=== PATIENT | female | born 1950 | race Caucasian/White ===

== ENCOUNTER 2016-12-03 23:25 | Inpatient (IN) | payer MEDICAID ==
[~2016-12-03] VITALS: Ht 154.9 cm; Wt 89.8 kg
[~2016-12-03 23:25] MED LIST: AMLO-27 PO; ATOR10TA PO; BENA40TA PO; FLUO-387 PO; LABE300T19 PO; ONDA4TAB PO; SYN.075 PO; [UNRECOGNIZED DRUG - CODE] PO
[2016-12-03 23:37] VITALS: BP 141/76
[2016-12-04 00:18] LABS: BASOPHILS # (AUTO) 0.1 K/uL (0.00-0.22); BASOPHILS % (AUTO) 0.9 % (0.0-2.0); EOSINOPHILS # (AUTO) 0.3 K/uL (0-0.4); EOSINOPHILS % (AUTO) 2.4 % (0.0-4.0); HEMATOCRIT 37.7 % (36-48); HEMOGLOBIN 12.2 g/dL (12.0-16.0); LYMPHOCYTES # (AUTO) 0.9 K/uL (2.5-16.5); MEAN CORPUSCULAR HEMOGLOBIN 26 pg (27-31); MEAN CORPUSCULAR HGB CONC 32 g/dL (33-37); MEAN CORPUSCULAR VOLUME 81 fL (80-94); MONOCYTES # (AUTO) 0.4 K/uL (0.8-1.0); MONOCYTES % (AUTO) 3.6 % (1.7-9.3); NEUTROPHILS # (AUTO) 9.2 K/uL (1.8-7.7); NEUTROPHILS % (AUTO) 84.6 % (42.2-75.2); PLATELET COUNT (AUTO) 311 K/uL (140-450); RED BLOOD CELL COUNT(AUTO) 4.66 MIL/uL (4.20-5.40); RED CELL DISTRIBUTION WIDTH 14.5 % (11.6-13.7); WHITE BLOOD COUNT (AUTO) 10.9 K/uL (4.8-10.8)
--- NOTE | 2016-12-04 00:20 | NUR ---
PT RETURN FROM CT
[2016-12-04 00:23] LABS: APPEARANCE,URINE HAZY (CLEAR); BILIRUBIN,URINE 1+ (NEGATIVE); BLOOD, URINE NEGATIVE (NEGATIVE); COLOR,URINE YELLOW (YELLOW); LEUKOCYTE ESTERASE ,URINE NEGATIVE (NEGATIVE); NITRITE, URINE NEGATIVE (NEGATIVE); PH,URINE 5.5 (5.0-9.0); PROTEIN,URINE 1+ (NEGATIVE); UGLUCOSE NEGATIVE (NEGATIVE); UROBILINOGEN,URINE 0.2 EU/dL (0.2 - 1)
[2016-12-04 00:27] LABS: LYMPHOCYTES % (AUTO) 8.5 % (20.5-51.1)
[2016-12-04 00:31] LABS: ALBUMIN 3.7 g/dL (3.4-5.0); ANION GAP 17.1 (8-16); CALCIUM 9.2 mg/dL (8.5-10.1); CARBON DIOXIDE 27.7 mmol/L (21-32); CREATININE 1.8 mg/dL (0.6-1.3); POTASSIUM 3.8 mmol/L (3.5-5.1); TOTAL BILIRUBIN 0.4 mg/dL (0.0-1.0); TOTAL PROTEIN, SERUM 8.7 g/dL (6.4-8.2)
[2016-12-04 00:37] LABS: BACTERIA,URINE FEW /HPF (None Seen); ICTOTEST NEGATIVE (NEGATIVE); MUCUS,URINE 3+ /LPF (None Seen); RBC,URINE 0-5 (RARE) /HPF (0-5); URINE AMORPHOUS URATE 3+ /HPF (None Seen); WBC,URINE 0-5 (RARE) /HPF (0-5)
--- NOTE | 2016-12-04 01:37 | NUR ---
PT TAKEN TO BED 7
--- NOTE | 2016-12-04 01:38 | NUR ---
66 Y/O F W/C/O LOWER ABD/ LOWER BACK PAIN X 8 DAYS AGO. PT ALSO C/O N/V AND CHILLS ON AND OFF SINCE 8 DAYS AGO WELL. MISAEL ALEJO MADE AWARE.
--- NOTE | 2016-12-04 02:10 | NUR ---
Dr. Perales evaluating patient at bedside.
[2016-12-04] MEDS ORDERED: NACL 0.9% 1,000 ML IV ONE (02:20)
[2016-12-04] MEDS ORDERED: ONDANSETRON 4 MG/2 ML VIAL IVP ONE (02:20)
[2016-12-04] MEDS ORDERED: MORPHINE SULFATE 4 MG/ML SYR IVP ONE (02:20)
[2016-12-04] MEDS ORDERED: ONDANSETRON 4 MG/2 ML VIAL IVP PRN (02:40)
[2016-12-04] MEDS ORDERED: LORazepam 2 MG/ML VIAL IVP PRN (02:40)
[2016-12-04] MEDS ORDERED: ACETAMINOPHEN 325 MG TAB PO PRN (02:40)
--- NOTE | 2016-12-04 02:52 | NUR ---
Patient will be admitted to care of DR MART. Admited to MED SURG. Will go to room 120 B. Belongings list completed. Report to ОЛЬГА ESPARZA.
--- NOTE | 2016-12-04 03:02 | NUR ---
PT TRASFERRED TO MED SURG VIA WHEELCHAIR BY EMT. NO S/S OF DSITRESS NOTED UPON TRASFER.
[2016-12-04 03:20] VITALS: BP 148/71
--- NOTE | 2016-12-04 03:20 | NUR ---
ADMITTED THIS 66 YEAR OLD FEMALE FROM ER PER WHEELCHAIR WITH CC OF VOMITING AND ABDOMINAL PAIN, ASSESSMENT DONE, 09/21 PAIN AT THIS TIME, WILL MEDICATE PRN, NO N/V NOTED, INSTRUCTED NPO STATUS, VERBALIZED UNDERSTANDING, ORIENTED TO CALL LIGHT AND ROOM, SAFETY MEASURES IN PLACE, CALL LIGHT WITHIN REACH.
[2016-12-04] MEDS: DEXT 5% /NACL 0.9% 1,000 ML IV SCH ×3 (03:25→22:40)
[2016-12-04] MEDS ORDERED: ONDANSETRON 4 MG TAB PO SCH (04:00)
--- NOTE | 2016-12-04 05:10 | NUR ---
AMBULATED TO BR WITH STEADY GAIT, NO N/V AND PAIN AT THIS TIME, IVF INFUSING WELL, MONITORED CLOSELY.
[2016-12-04] MEDS: LEVOTHYROXINE 0.075 MG TAB PO SCH (05:44)
[2016-12-04] MEDS: MORPHINE SULFATE 4 MG/ML SYR IVP PRN (06:22)
--- NOTE | 2016-12-04 06:25 | NUR ---
PT AMBULATED TO BR AND VOIDED FREELY, SCD'S APPLIED, MEDICATED PRN FOR PAIN WITH MORPHINE IVP, IVF INFUSING WELL, MONITORED CLOSELY.
--- NOTE | 2016-12-04 07:20 | NUR ---
PT AWAKE, NO SIGNS OF DISTRESS, REPORT GIVEN TO ОЛЬГА GOULD FOR CONTINUITY OF CARE.
--- NOTE | 2016-12-04 07:30 | NUR ---
RECEIVED REPORT FROM ОЛЬГА ESPARZA. PT IS A/O X4. VERBALLY RESPONSIVE. BILATERAL PERRLA NOTED. NO C/O PAIN OR N/V. PT ON RA. SATURATING AT 98%. SKIN IS INTACT. PT IS AMBULATORY. LEFT AC 20 GAUGE IV NOTED. INTACT AND PATENT. SAFETY PRECAUTION MAINTAINED. BED AT LOWEST SETTING. CALL LIGHT WITHIN REACH. WILL CONTINUE TO MONITOR.
[2016-12-04 08:00] VITALS: BP 119/64
--- NOTE | 2016-12-04 08:08 | NUR ---
DR. DEVRIES PAGED REGARDING PATIENT. AWAITING CALL BACK.
--- NOTE | 2016-12-04 08:15 | NUR ---
RECEIVED CALL BACK FROM DR. DEVRIES. WILL FOLLOW NEW ORDERS.
[2016-12-04] MEDS: FLUoxetine 20 MG CAP PO SCH (08:54)
[2016-12-04] MEDS: ATORVASTATIN 20 MG TAB PO SCH (08:55)
[2016-12-04] MEDS: LABETALOL 100 MG TAB PO SCH (08:55)
[2016-12-04] MEDS: amLODIPine 5 MG TAB PO SCH (08:56)
[2016-12-04] MEDS: hydrALAZINE 25 MG TAB PO SCH (08:56)
--- NOTE | 2016-12-04 08:56 | NUR ---
PATIENT HAS BEEN SCREENED AND CATEGORIZED HIGH NUTRITION RISK. PATIENT WILL BE SEEN WITHIN 1-2 DAYS OF ADMISSION. 12/04/16-12/05/[address]
--- NOTE | 2016-12-04 08:56 | NUR ---
MEDICATION ADMINISTERED ORDERED. CHECKED BP. 119/64, P 68. TOLERATED WELL. WILL CONTINUE TO MONITOR.
[2016-12-04] MEDS ORDERED: BENAZEPRIL 20 MG TAB PO SCH (09:00)
--- NOTE | 2016-12-04 09:20 | NUR ---
DR. DEVRIES AT UNIT TO SEE PT. WILL F/U WITH NEW ORDERS.
--- NOTE | 2016-12-04 11:00 | NUR ---
DECKHAND FISHING VESSEL PRESENT AT BEDSIDE.
--- NOTE | 2016-12-04 11:56 | NUR ---
ADMISSION REVIEW DONE. PT INDEPENDENT IN ADLS PRIOR TO HOSPITALIZATION.
--- NOTE | 2016-12-04 12:15 | NUR ---
CHECKED ON PT. ALL NEEDS MET AT THIS TIME. CALL LIGHT WITHIN REACH.
--- NOTE | 2016-12-04 13:04 | NUR ---
12/04/16 RD INITIAL ASSESSMENT COMPLETED 1. INITIATE/TOLERATE PO DIET WITHIN 2-3 DAYS 2. MEET AT LEAST 50% ESTIMATED NUTRIENT NEEDS WITHIN 2-[address]
--- NOTE | 2016-12-04 13:42 | NUR ---
PT C/O 11/21 HEADACHE. MEDICATION GIVEN ORDERED.BP 107/97, P 88. WILL CONTINUE MONITORING
[2016-12-04] MEDS ORDERED: ONDANSETRON 4 MG TAB PO PRN (14:10)
[2016-12-04] MEDS: MORPHINE SULFATE 2 MG/ML SYR IVP PRN (14:33)
--- NOTE | 2016-12-04 14:57 | NUR ---
DR. MELENDEZ CONTACTED REGARDING SURGERY CONSULT. PER DR, HE IS NOT EMS DIRECTOR AND DR. COWAN IS EMS DIRECTOR INSTEAD. DR. COWAN CONTACTED. VOICE MAIL LEFT WITH CALL BACK NUMBER.
[2016-12-04 16:00] VITALS: BP 93/50
--- NOTE | 2016-12-04 16:45 | NUR ---
DR. ORTIZ AT BEDSIDE TO SEE PT. WILL F/U WITH NEW ORDERS. DR. Ming DEVRIES PAGED PER DR. ORTIZ'S INSTRUCTION. AWAITING CALL BACK.
--- NOTE | 2016-12-04 17:30 | NUR ---
URINE COLLECTED. SEND TO LAB.
--- NOTE | 2016-12-04 17:57 | NUR ---
CALL BACK RECEIVED FROM DR. HERNANDEZ. PER DR. HERNANDEZ, HE WILL BE CONSULT FOR PT.
--- NOTE | 2016-12-04 19:23 | NUR ---
REPORT GIVEN TO ОЛЬГА ESPARZA. PT IS STABLE.
--- NOTE | 2016-12-04 19:30 | NUR ---
RECEIVED PT AWAKE TALKING TO FAMILY MEMBERS AT BEDSIDE, DENIES ANY PAIN, MAINTAINED ON NPO EXCEPT MEDS, ICE CHIPS PROVIDED, PLAN OF CARE DISCUSSED WITH PT AND SISTER, SAFETY MEASURES IN PLACE, CALL LIGHT WITHIN REACH.
--- NOTE | 2016-12-04 20:50 | NUR ---
PT AMBULATED TO BR WITH STEADY GAIT AND VOIDED FREELY, ALL NEEDS ATTENDED.
--- NOTE | 2016-12-04 22:35 | NUR ---
PT TRANSFERRED TO ROOM 111A, DENIES PAIN AT THIS TIME, ICE CHIPS PROVIDED, IVF INFUSING WELL, MONITORED CLOSELY.
[2016-12-05] VITALS: BP 119/61
--- NOTE | 2016-12-05 | NUR ---
PT SLEEPING, EASILY AROUSABLE, VITAL SIGNS STABLE, DENIES ANY PAIN OR NAUSEA, IVF INFUSING WELL, CONTINUE TO MONITOR CLOSELY.
[2016-12-05] MEDS: DEXT 5% /NACL 0.9% 1,000 ML IV SCH (02:11)
--- NOTE | 2016-12-05 04:00 | NUR ---
ROUNDED ON PT, SLEEPING NO SIGNS OF PAIN, IVF INFUSING WELL, MONITORED CLOSELY.
[2016-12-05] MEDS: LEVOTHYROXINE 0.075 MG TAB PO SCH (05:55)
[2016-12-05] MEDS: MORPHINE SULFATE 2 MG/ML SYR IVP PRN ×2 (05:58→21:18)
--- NOTE | 2016-12-05 06:00 | NUR ---
DUE PO MEDICATION GIVEN WITH SIP OF JUICE, NO NAUSEA NOTED, MEDICATED PRN FOR ABDOMINAL PAIN WITH MORPHINE IVP, MONITORED CLOSELY.
[2016-12-05 06:50] LABS: BASOPHILS # (AUTO) 0.1 K/uL (0.00-0.22); BASOPHILS % (AUTO) 1.5 % (0.0-2.0); EOSINOPHILS # (AUTO) 0.1 K/uL (0-0.4); EOSINOPHILS % (AUTO) 1.7 % (0.0-4.0); HEMATOCRIT 30.6 % (36-48); HEMOGLOBIN 9.7 g/dL (12.0-16.0); LYMPHOCYTES # (AUTO) 2.3 K/uL (2.5-16.5); LYMPHOCYTES % (AUTO) 35.2 % (20.5-51.1); MEAN CORPUSCULAR HEMOGLOBIN 26 pg (27-31); MEAN CORPUSCULAR HGB CONC 32 g/dL (33-37); MEAN CORPUSCULAR VOLUME 81 fL (80-94); MONOCYTES # (AUTO) 0.5 K/uL (0.8-1.0); MONOCYTES % (AUTO) 7.3 % (1.7-9.3); NEUTROPHILS # (AUTO) 3.7 K/uL (1.8-7.7); NEUTROPHILS % (AUTO) 54.3 % (42.2-75.2); PLATELET COUNT (AUTO) 225 K/uL (140-450); RED BLOOD CELL COUNT(AUTO) 3.78 MIL/uL (4.20-5.40); RED CELL DISTRIBUTION WIDTH 14.5 % (11.6-13.7); WHITE BLOOD COUNT (AUTO) 6.7 K/uL (4.8-10.8)
[2016-12-05 06:54] LABS: ANION GAP 12.9 (8-16); CALCIUM 7.8 mg/dL (8.5-10.1); CARBON DIOXIDE 27.2 mmol/L (21-32); CREATININE 1.1 mg/dL (0.6-1.3); POTASSIUM 3.1 mmol/L (3.5-5.1)
[2016-12-05 07:07] LABS: MAGNESIUM 1.8 mg/dL (1.8-2.4); PHOSPHORUS 3.9 mg/dL (2.5-4.9)
[2016-12-05] MEDS: DEXT 5% / NACL 0.45% 1,000 ML IV SCH ×2 (07:15→16:07)
--- NOTE | 2016-12-05 07:15 | NUR ---
SPOKE WITH DR Anup DEVRIES REGARDING POTASSIUM OF 3.1. MD IS AWARE AND SAID HE WILL COME IN TO PLACE ORDERS.
--- NOTE | 2016-12-05 07:20 | NUR ---
PT AWAKE, NO SIGNS OF DISTRESS, REPORT GIVEN TO ОЛЬГА RIVERA FOR CONTINUITY OF CARE.
--- NOTE | 2016-12-05 07:20 | NUR ---
RECEIVED PT REPORT AT BEDSIDE FROM NIGHT NURSE. PT IS AAOX4 AND SHOWS NO S/S OF DISTRESS ON ROOM AIR. PT HAS A NOTED PATENT IV ON THE R AC WITH IVF'S INFUSING WELL. PT SKIN IS INTACT AND ABD IS SOFT AND TENDER AT THE UMBILICAL AREA AND RLQ. PT STATES PAIN OF 8/10 IN THE LOWER ABD. PT WAS EDUCATED ON HER POC FOR TODAY. PT VERBALIZED UNDERSTANDING. THE BED IS LOWERED WITH THE CALL LIGHT WITHIN REACH. WILL CONTINUE TO MONITOR.
[2016-12-05] MEDS ORDERED: POTASSIUM CHLORIDE 10 MEQ TABER PO SCH (08:22)
[2016-12-05 08:33] VITALS: BP 130/59
[2016-12-05] MEDS: amLODIPine 5 MG TAB PO SCH (08:35)
[2016-12-05] MEDS: FLUoxetine 20 MG CAP PO SCH (08:35)
[2016-12-05] MEDS: ATORVASTATIN 20 MG TAB PO SCH (08:35)
[2016-12-05] MEDS: hydrALAZINE 25 MG TAB PO SCH (08:36)
--- NOTE | 2016-12-05 08:36 | NUR ---
ADMINISTERED SCHEDULED MEDICATIONS. PT TOLERATED ACTIVITY WELL. PT STATED ABD PAIN OF 8/10. PT WAS GIVEN MORPHINE 4 MG IVP. PT THEN AMB TO THE RESTROOM WITH A STEADY GAIT.
[2016-12-05] MEDS: MORPHINE SULFATE 4 MG/ML SYR IVP PRN (08:37)
--- NOTE | 2016-12-05 08:45 | NUR ---
PT IS BEING SEEN BY DR COWAN. STATED WILL PLACE ORDERS FOR ABD BINDER AND CLEAR LIQUIDS.
--- NOTE | 2016-12-05 08:50 | NUR ---
PLACE AN ABD BINDER ONTO PT.
[2016-12-05 09:44] LABS: INR 1.1 (0.8-1.2); PROTHROMBIN TIME 10.7 secs (10.8-13.4)
--- NOTE | 2016-12-05 10:30 | NUR ---
PT WAS GIVEN GELATIN AND JUICE. PT AWARE SHE IS ON A CLEAR LIQUID DIET.
--- NOTE | 2016-12-05 11:46 | NUR ---
PT IS UP OOB AND AMB TO RESTROOM WITH A STEADY GAIT. PT STATED SHE WOULD LIKE TO TAKE A SHOWER. PT SHOWS NO S/S OF DISTRESS AT THIS TIME.
[2016-12-05] MEDS: LABETALOL 100 MG TAB PO SCH (11:48)
--- NOTE | 2016-12-05 12:40 | NUR ---
PT IN BED AND ATE ALL OF LUNCH. PT TOLERATED CLEAR LIQUID DIET WELL. PT DENIES PAIN AT THIS TIME WILL CONTINUE TO MONITOR.
--- NOTE | 2016-12-05 15:25 | NUR ---
PT IS AAOX4 AND DENIES PAIN. PT SHOWS NO S/S OF DISTRESS ON ROOM AIR. PT LEFT UNIT IN STABLE CONDITION FOR XR.
--- NOTE | 2016-12-05 15:34 | NUR ---
PT IS BACK ON UNIT.
[2016-12-05 16:00] VITALS: BP 115/51
--- NOTE | 2016-12-05 17:21 | NUR ---
PT IS RESTING IN BED AND SHOWS NO S/S OF DISTRESS ON ROOM AIR. PT HAS VISITOR AT BEDSIDE. PT DENIES PAIN.
--- NOTE | 2016-12-05 18:18 | NUR ---
PT IS AAOX4 AND SHOWS NO S/S OF DISTRESS ON ROOM AIR. PT DENIES PAIN AND SOB. PT HAS IVF'S INFUSING WELL ON THE R H. PT HAS VISITOR AT BEDSIDE. THE BED IS LOWERED WITH CALL LIGHT WITHIN REACH. WILL ENDORSED TO THE AUTHOR NURSE.
--- NOTE | 2016-12-05 19:05 | NUR ---
GAVE PT REPORT TO NIGHT NURSE AT BEDSIDE. PT ENDORSED IN STABLE CONDITION.
--- NOTE | 2016-12-05 19:30 | NUR ---
RECEIVED REPORT FROM AM NURSE. FAMILY AT BEDSIDE. PT RESTING IN BED, AOX4, ABLE TO VERBALIZE NEEDS. PT DENIES CHEST PAIN, SOB OR S/S OF ACUTE DISTRESS. ABD LARGE AND ROUND, DENIES PAIN AT THIS TIME. ABD BINDER IN PLACE. IV ACCESS ASYMPTOMATIC PATENT AND INTACT. IVF INFUSING WELL. DISCUSSED AND REVIEWED PLAN OF CARE WITH PT. PT VERBALIZED UNDERSTANDING. SAFETY MEASURES ENSURED. CALL LIGHT WITHIN REACH. WILL CONTINUE TO MONITOR.
[2016-12-05 20:00] VITALS: BP 137/62
--- NOTE | 2016-12-05 21:22 | NUR ---
PT C/O PAIN. SEE PAIN ASSESSMENT. ADMINISTERED PAIN MEDICATION ORDERED. PT TOLERATED WELL. SAFETY MEASURES ENSURED. CALL LIGHT WITHIN REACH. WILL CONTINUE TO MONITOR.
[2016-12-06] VITALS: BP 125/64
--- NOTE | 2016-12-06 | NUR ---
PT SLEEPING. CONDITION STABLE. SAFETY MEASURES ENSURED. CALL LIGHT WITHIN REACH. WILL CONTINUE TO MONITOR.
[2016-12-06] MEDS: DEXT 5% / NACL 0.45% 1,000 ML IV SCH ×2 (03:15→15:09)
--- NOTE | 2016-12-06 04:34 | NUR ---
PT SLEEPING. ALL NEEDS MET. CONDITION STABLE. SAFETY MEASURES ENSURED. CALL LIGHT WITHIN REACH. WILL CONTINUE TO MONITOR.
[2016-12-06] MEDS: LEVOTHYROXINE 0.075 MG TAB PO SCH (05:32)
[2016-12-06] MEDS: MORPHINE SULFATE 2 MG/ML SYR IVP PRN (05:38)
[2016-12-06 07:20] LABS: BASOPHILS # (AUTO) 0.2 K/uL (0.00-0.22); BASOPHILS % (AUTO) 3.8 % (0.0-2.0); EOSINOPHILS # (AUTO) 0.2 K/uL (0-0.4); EOSINOPHILS % (AUTO) 3.2 % (0.0-4.0); HEMATOCRIT 33.4 % (36-48); HEMOGLOBIN 10.8 g/dL (12.0-16.0); LYMPHOCYTES # (AUTO) 2.1 K/uL (2.5-16.5); LYMPHOCYTES % (AUTO) 35.4 % (20.5-51.1); MEAN CORPUSCULAR HEMOGLOBIN 26 pg (27-31); MEAN CORPUSCULAR HGB CONC 32 g/dL (33-37); MEAN CORPUSCULAR VOLUME 81 fL (80-94); MONOCYTES # (AUTO) 0.3 K/uL (0.8-1.0); MONOCYTES % (AUTO) 4.4 % (1.7-9.3); NEUTROPHILS # (AUTO) 3.2 K/uL (1.8-7.7); NEUTROPHILS % (AUTO) 53.2 % (42.2-75.2); PLATELET COUNT (AUTO) 238 K/uL (140-450); RED CELL DISTRIBUTION WIDTH 14.4 % (11.6-13.7)
--- NOTE | 2016-12-06 07:26 | NUR ---
ENDORSED PLAN OF CARE TO AM NURSE. CONDITION STABLE.
--- NOTE | 2016-12-06 07:26 | NUR ---
RECEIVED PT REPORT AT BEDSIDE FROM NIGHT NURSE. PT IS AAOX4 AND SHOWS NO S/S OF DISTRESS ON ROOM AIR. PT DENIES ABD PAIN. IV NOTED ON THE R H WITH IVF'S INFUSING WELL. PT IS ON MS. PT HAS NOTED ABD BINDER. PT WAS EDUCATED ON THE POC FOR TODAY. PT VERBALIZED UNDERSTANDING. THE BED IS LOWERED WITH CALL LIGHT WITHIN REACH.
[2016-12-06 07:55] LABS: ANION GAP 11.5 (8-16); CALCIUM 8.3 mg/dL (8.5-10.1); CARBON DIOXIDE 29.1 mmol/L (21-32); CREATININE 0.9 mg/dL (0.6-1.3); POTASSIUM 3.6 mmol/L (3.5-5.1)
[2016-12-06 08:00] VITALS: BP 138/79
[2016-12-06] MEDS: ATORVASTATIN 20 MG TAB PO SCH (08:35)
[2016-12-06] MEDS: hydrALAZINE 25 MG TAB PO SCH (08:35)
[2016-12-06] MEDS: amLODIPine 5 MG TAB PO SCH (08:36)
[2016-12-06] MEDS: FLUoxetine 20 MG CAP PO SCH (08:36)
--- NOTE | 2016-12-06 08:40 | NUR ---
ADMINISTERED SCHEDULED MEDICATIONS. PT TOLERATED ACTIVITY WELL. PT NOT GIVEN LABETALOL 100MG. WILL REASSESS BP.
[2016-12-06] MEDS: LABETALOL 100 MG TAB PO SCH (09:00)
--- NOTE | 2016-12-06 11:15 | NUR ---
PT IS IN BED AND SHOWS NO S/S OF DISTRESS AT THIS TIME. PT DENIES ABD PAIN AND SOB. WILL CONTINUE TO MONITOR.
--- NOTE | 2016-12-06 12:00 | NUR ---
DID NOT GIVE PT LABETALOL. PT BP IS STABLE. WILL CONTINUE TO MONITOR.
--- NOTE | 2016-12-06 13:15 | NUR ---
PT HAS VISITORS AT BEDSIDE. PT SHOWS NO S/S OF DISTRESS ON ROOM AIR. PT IS COMFORTABLY IN BED AND TALKING CLEARLY. PT DENIES ABD PAIN. WILL CONTINUE TO MONITOR.
--- NOTE | 2016-12-06 15:41 | NUR ---
PT IS IN BED AND SHOWS NO S/S OF DISTRESS ON ROOM AIR. PT HAS VISITORS AT BEDSIDE. WILL CONTINUE TO MONITOR.
[2016-12-06 16:00] VITALS: BP 112/63
--- NOTE | 2016-12-06 17:10 | NUR ---
PT C/O ABD PAIN 12/21 WILL ADMINISTER PRN PAIN MEDICATION.
[2016-12-06] MEDS: MORPHINE SULFATE 4 MG/ML SYR IVP PRN (17:12)
--- NOTE | 2016-12-06 18:11 | NUR ---
PT IS AAOX4 AND SHOWS NO S/S OF DISTRESS ON ROOM AIR. PT DENIES PAIN AT THIS TIME. PT AMB TO RESTROOM WITH STABLE GAIT. PT IS NOW SITTING IN BED AND IN STABLE CONDITION. PT HAS IV ON THE R H WITH IVF'S INFUSING WELL. PT HAS ABD BINDER ON. PT IS AWARE OF POC FOR TOMORROW. PT WILL BE NPO AT MIDNIGHT. WILL ENDORSED TO THE NIGHT NURSE.
--- NOTE | 2016-12-06 19:26 | NUR ---
GAVE REPORT TO NIGHT NURSE AT BEDSIDE. PT ENDORSED IN STABLE CONDITION.
--- NOTE | 2016-12-06 19:30 | NUR ---
RECEIVED REPORT FROM AM NURSE. FAMILY AT BEDSIDE. PT RESTING IN BED, AOX4, ABLE TO VERBALIZE NEEDS. PT DENIES CHEST PAIN, SOB OR S/S OF ACUTE DISTRESS. ABD LARGE AND ROUND, DENIES PAIN AT THIS TIME. ABD BINDER IN PLACE. IV ACCESS ASYMPTOMATIC PATENT AND INTACT. PT REQUESTED TO HAVE IVF SALINE LOCKED AT THIS TIME. DISCUSSED AND REVIEWED PLAN OF CARE WITH PT. PT VERBALIZED UNDERSTANDING. PT INSTRUCTED TO BE NPO AFTER MIDNIGHT, PT VERBALIZED UNDERSTANDING. SAFETY MEASURES ENSURED. CALL LIGHT WITHIN REACH. WILL CONTINUE TO MONITOR.
[2016-12-06 20:00] VITALS: BP 135/77
--- NOTE | 2016-12-06 21:31 | NUR ---
PT RESTING COMFORTABLY IN BED. ALL NEEDS MET. CONDITION STABLE. SAFETY MEASURES ENSURED. CALL LIGHT WITHIN REACH. WILL CONTINUE TO MONITOR.
--- NOTE | 2016-12-06 23:48 | NUR ---
PT MOVED TO ROOM 105A WITH BED AND BELONGINGS. ALL NEEDS MET. CONDITION STABLE. IVF INFUSING WELL. SAFETY MEASURES ENSURED. CALL LIGHT WITHIN REACH. WILL CONTINUE TO MONITOR.
[2016-12-07] VITALS: BP 113/55
--- NOTE | 2016-12-07 | NUR ---
INSTRUCTED PT TO REMAIN NPO. PT VERBALIZED UNDERSTANDING.
--- NOTE | 2016-12-07 03:13 | NUR ---
PT SLEEPING. ALL NEEDS MET. CONDITION STABLE. SAFETY MEASURES ENSURED. CALL LIGHT WITHIN REACH. WILL CONTINUE TO MONITOR.
[2016-12-07] MEDS: LEVOTHYROXINE 0.075 MG TAB PO SCH (05:55)
[2016-12-07 06:24] LABS: BASOPHILS # (AUTO) 0.1 K/uL (0.00-0.22); BASOPHILS % (AUTO) 1.6 % (0.0-2.0); EOSINOPHILS # (AUTO) 0.1 K/uL (0-0.4); EOSINOPHILS % (AUTO) 2.4 % (0.0-4.0); HEMATOCRIT 31.4 % (36-48); HEMOGLOBIN 10.1 g/dL (12.0-16.0); LYMPHOCYTES # (AUTO) 1.9 K/uL (2.5-16.5); LYMPHOCYTES % (AUTO) 35.4 % (20.5-51.1); MEAN CORPUSCULAR HEMOGLOBIN 26 pg (27-31); MEAN CORPUSCULAR HGB CONC 32 g/dL (33-37); MEAN CORPUSCULAR VOLUME 81 fL (80-94); MONOCYTES # (AUTO) 0.4 K/uL (0.8-1.0); MONOCYTES % (AUTO) 7.4 % (1.7-9.3); NEUTROPHILS # (AUTO) 2.8 K/uL (1.8-7.7); NEUTROPHILS % (AUTO) 53.2 % (42.2-75.2); PLATELET COUNT (AUTO) 236 K/uL (140-450); RED CELL DISTRIBUTION WIDTH 14.1 % (11.6-13.7); WHITE BLOOD COUNT (AUTO) 5.3 K/uL (4.8-10.8)
[2016-12-07 06:34] LABS: ANION GAP 7.2 (8-16); CARBON DIOXIDE 32.2 mmol/L (21-32); CREATININE 0.8 mg/dL (0.6-1.3); POTASSIUM 3.4 mmol/L (3.5-5.1)
[2016-12-07 07:03] LABS: MAGNESIUM 1.4 mg/dL (1.8-2.4); PHOSPHORUS 3.4 mg/dL (2.5-4.9)
--- NOTE | 2016-12-07 07:18 | NUR ---
CONDITION STABLE. ENDORSED PLAN OF CARE TO AM NURSE.
--- NOTE | 2016-12-07 07:19 | NUR ---
RECEIVED REPORT OF PT FROM E TAILER NURSE AT BEDSIDE. INTRODUCED MYSELF AND UPDATED THE BOARD. PT IS A&OX4. PT HAS IV ON R HAND 22 G RUNNING D51/2NS@ 60ML/HR. PT HAS NO COMPLAINTS AT THIS TIME. PT HAS BEEN KEPT NPO AFTER MIDNIGHT FOR POSS HERNIA REPAIR. PT VERBALIZED UNDERSTANDING OF PLAN, WILL UPDATE PT. CALL LIGHT WITHIN REACH. WILL CONTINUE TO MONITOR.
[2016-12-07] MEDS: DEXT 5% / NACL 0.45% 1,000 ML IV SCH (07:49)
[2016-12-07 08:00] VITALS: BP 147/70
[2016-12-07] MEDS ORDERED: POTASSIUM CHLORIDE 10 MEQ TABER PO SCH (09:30)
--- NOTE | 2016-12-07 09:30 | NUR ---
PT TOOK A SHOWER. TOLERATED WELL. CALL LIGHT WITHIN REACH. WILL CONTINUE TO MONITOR.
[2016-12-07] MEDS: ATORVASTATIN 20 MG TAB PO SCH (09:49)
[2016-12-07] MEDS: LABETALOL 100 MG TAB PO SCH (09:49)
[2016-12-07] MEDS: FLUoxetine 20 MG CAP PO SCH (09:49)
[2016-12-07] MEDS: amLODIPine 5 MG TAB PO SCH (09:50)
[2016-12-07] MEDS ORDERED: MAG SULF 2000 MG/WATER PREMIX 50 ML IV SCH (10:00)
--- NOTE | 2016-12-07 11:00 | NUR ---
PT IS RESTING COMFORTABLY IN BED. CALL LIGHT WITHIN REACH. WILL CONTINUE TO MONITOR.
--- NOTE | 2016-12-07 11:28 | NUR ---
12/07/16 RD FOLLOW-UP ASSESSMENT COMPLETED PLEASE REFER TO NUTRITION ASSESSMENT UNDER CARE ACTIVITY FOR ESTIMATED NUTRITIONAL NEEDS. 1. WHEN MEDICALLY FEASIBLE, RESUME PO DIET - TO START ON CLEAR LIQUID DIET AND ADVANCE TOLERATED TO LOW FAT DIET 2. RD TO FOLLOW-UP 2-3 DAYS; HIGH RISK VADIM MERCADO, RADHA
--- NOTE | 2016-12-07 13:05 | NUR ---
PT REQUESTED PAIN MED. ADMINISTERED AND TOLERATED WELL. CALL LIGHT WITHIN REACH. WILL CONTINUE TO MONITOR.
--- NOTE | 2016-12-07 14:50 | NUR ---
PT IS RESTING IN BED. NO DISTRESS NOTED. CALL LIGHT WITHIN REACH. WILL CONTINUE TO MONITOR.
[2016-12-07 16:00] VITALS: BP 121/60
--- NOTE | 2016-12-07 16:00 | NUR ---
DR. COWAN ORDERED FULL LIQUID DIET. STATED HE WILL CALL BACK TO RESCHEDULE SURGERY TIME.
--- NOTE | 2016-12-07 18:40 | NUR ---
PT TOOK WALK IN HALLWAY. TOLERATED WELL. WILL CONTINUE TO MONITOR.
--- NOTE | 2016-12-07 19:25 | NUR ---
ENDORSED CARE OF PT TO DRIVING INSTRUCTOR NURSE AT BEDSIDE. PT IN STABLE CONDITION.
--- NOTE | 2016-12-07 19:30 | NUR ---
RECEIVED REPORT FROM AM NURSE. PT RESTING IN BED, AOX4, ABLE TO VERBALIZE NEEDS. PT DENIES CHEST PAIN, SOB OR S/S OF ACUTE DISTRESS. ABD LARGE AND ROUND, DENIES PAIN AT THIS TIME. IV ACCESS ASYMPTOMATIC PATENT AND INTACT. IVF INFUSING WELL. DISCUSSED AND REVIEWED PLAN OF CARE WITH PT. PT VERBALIZED UNDERSTANDING. SAFETY MEASURES ENSURED. CALL LIGHT WITHIN REACH. WILL CONTINUE TO MONITOR.
[2016-12-07 20:00] VITALS: BP 106/48
[2016-12-08] VITALS: BP_SYST 106; BP_SYST 126; BP_DIAS 48; BP_DIAS 49
--- NOTE | 2016-12-08 | NUR ---
PT INSTRUCTED TO NOT EAT OR DRINK FOR POSSIBLE SURGERY TOMORROW. PT VERBALIZED UNDERSTANDING. VS NOTED. PT RESTING COMFORTABLY, DENIES PAIN AT THIS TIME. SAFETY MEASURES ENSURED. CALL LIGHT WITHIN REACH. WILL CONTINUE TO MONITOR.
--- NOTE | 2016-12-08 03:12 | NUR ---
PT SLEEPING. CONDITION STABLE. ALL NEEDS MET. IVF INFUSING WELL. SAFETY MEASURES ENSURED. CALL LIGHT WITHIN REACH. WILL CONTINUE TO MONITOR.
[2016-12-08] MEDS: DEXT 5% / NACL 0.45% 1,000 ML IV SCH (03:31)
[2016-12-08] MEDS: LEVOTHYROXINE 0.075 MG TAB PO SCH (05:31)
[2016-12-08 05:57] LABS: BASOPHILS # (AUTO) 0.1 K/uL (0.00-0.22); BASOPHILS % (AUTO) 1.9 % (0.0-2.0); EOSINOPHILS # (AUTO) 0.2 K/uL (0-0.4); EOSINOPHILS % (AUTO) 3.9 % (0.0-4.0); HEMATOCRIT 32.3 % (36-48); HEMOGLOBIN 10.4 g/dL (12.0-16.0); LYMPHOCYTES # (AUTO) 1.6 K/uL (2.5-16.5); LYMPHOCYTES % (AUTO) 29.4 % (20.5-51.1); MEAN CORPUSCULAR HEMOGLOBIN 26 pg (27-31); MEAN CORPUSCULAR HGB CONC 32 g/dL (33-37); MEAN CORPUSCULAR VOLUME 81 fL (80-94); MONOCYTES # (AUTO) 0.4 K/uL (0.8-1.0); MONOCYTES % (AUTO) 6.6 % (1.7-9.3); NEUTROPHILS # (AUTO) 3.3 K/uL (1.8-7.7); NEUTROPHILS % (AUTO) 58.2 % (42.2-75.2); PLATELET COUNT (AUTO) 226 K/uL (140-450); RED BLOOD CELL COUNT(AUTO) 3.98 MIL/uL (4.20-5.40); RED CELL DISTRIBUTION WIDTH 14.2 % (11.6-13.7); WHITE BLOOD COUNT (AUTO) 5.6 K/uL (4.8-10.8)
[2016-12-08 06:16] LABS: ANION GAP 9.7 (8-16); CARBON DIOXIDE 29.8 mmol/L (21-32); CREATININE 0.8 mg/dL (0.6-1.3); POTASSIUM 3.5 mmol/L (3.5-5.1)
--- NOTE | 2016-12-08 06:39 | NUR ---
CALLED DR COWAN. ASKED IF HE IS PLANNING TO DO THE POSSIBLE HERNIA REPAIR SURGERY TODAY. MADE MD AWARE THAT PT WAS VERBALLY INSTRUCTED TO REMAIN NPO SINCE MIDNIGHT FOR POSSIBLE SURGERY. MD STATED "PROBABLY NOT TODAY, BECAUSE IT IS A COMPLEX SURGERY. SHE CAN EAT TODAY." MADE MD AWARE THAT PT WAS EXPRESSING CONCERNS TO BE DISCHARGED IF SHE DID NOT HAVE SURGERY TODAY. MD STATED THAT HE WILL BE IN TODAY AROUND NOON. WILL UPDATE PT AND DISCUSS THAT DR COWAN WILL BE IN TODAY AROUND NOON.
--- NOTE | 2016-12-08 07:15 | NUR ---
Patient's Plan of Care was discussed and reviewed with LATENT PRINT EXAMINER: SHANON MEDINA PT ON STABLE CONDITION. PT AWAKE. ALERT ORIENTED X4. NO SOB NOTED. PT AMBULATORY. POSITIVE BOWEL SOUNDS NOTED ON FOUR QUADRANTS. DENIES ANY PAIN OR DISCOMFORT AT THIS TIME. SAFETY PRECAUTION IN PLACE CALL LIGHT WITHIN REACH.
--- NOTE | 2016-12-08 07:21 | NUR ---
ASSUMED CONTINUITY OF CARE. NO SIGNS AND SYMPTOMS OF ACUTE DISTRESS NOTED. INITIAL ASSESSMENT DONE. KEEP COMFORTABLE ON BED. EXPLAINED DIAGNOSIS, PLAN OF CARE, PAIN MANAGEMENT TEACHING, USE OF CALL LIGHT/BED/TV/BATHROOM. VERBALIZED UNDERSTANDING. CALL LIGHT WITHIN REACH.
--- NOTE | 2016-12-08 07:21 | NUR ---
CONDITION STABLE. ENDORSED PLAN OF CARE TO AM NURSE.
[2016-12-08 08:00] VITALS: BP 131/69
[2016-12-08 09:00] VITALS: BP 128/63
[2016-12-08] MEDS: LABETALOL 100 MG TAB PO SCH (09:00)
[2016-12-08] MEDS: amLODIPine 5 MG TAB PO SCH (09:00)
[2016-12-08] MEDS: ATORVASTATIN 20 MG TAB PO SCH (09:01)
[2016-12-08] MEDS: FLUoxetine 20 MG CAP PO SCH (09:01)
--- NOTE | 2016-12-08 11:45 | NUR ---
DR. COWAN CAME AND SPOKE TO PT..
[2016-12-08 12:00] VITALS: BP 107/50
[2016-12-08 16:00] VITALS: BP 120/55
--- NOTE | 2016-12-08 17:43 | NUR ---
PAGED JESSICA COOPER REGARDING DR. COWAN SURGERY PLAN FOR Wednesday12/10/16 LAPAROSCOPIC POSSIBLE OPEN VENTRAL HERNIA REPAIR WITH MESH. LEFT CALL BACK NUMBER. INFORMED CHARGE NURSE.
--- NOTE | 2016-12-08 19:18 | NUR ---
JESSICA COOPER CAME, CHARGE NURSE LELIA GARCIA -ОЛЬГА INFORMED JESSICA COOPER OF DR. COWAN SURGERY PLAN OF LAPAROSCOPIC POSSIBLE OPEN VENTRAL HERNIA REPAIR WITH MESH ON 12/10/16.
--- NOTE | 2016-12-08 19:27 | NUR ---
BEDSIDE REPORT GIVEN TO CARMEN WILSON. NO ACUTE DISTRESS NOTED. ALSO ENDORSED ABOUT DR. COWAN SURGERY PLAN.
--- NOTE | 2016-12-08 19:28 | NUR ---
RECD. RESTING IN BED, AWAKE, A/OX4. RESPIRATION EVEN AND UNLABORED. IV SALINE LOCK AT THE RIGHT AC G22. PATENT BUT PATIENT IS COMPLAINING OF PAIN IN THE SITE, WILL CHANGE IV SITE LATER PER PATIENT REQUEST. AWARE OF SURGEON PLAN FOR HER. PLAN OF CARE FOR THE SHIFT DISCUSSED. VERBALIZED UNDERSTANDING. CONVERSING WITH VISITORS AT THE BEDSIDE. DENIES PAIN 0/10.
--- NOTE | 2016-12-08 21:30 | NUR ---
Patient's Plan of Care was discussed and reviewed with PEBBLE MILL OPERATOR: CARMEN JOHANSEN
--- NOTE | 2016-12-08 21:30 | NUR ---
GIVEN JUICES AND GELATIN REQUESTED.
[2016-12-09] VITALS: BP 121/74
--- NOTE | 2016-12-09 | NUR ---
STILL AWAKE, READING A BOOK. ENCOURAGED TO GO TO SLEEP.
--- NOTE | 2016-12-09 01:30 | NUR ---
SLEEPING COMFORTABLY IN BED.
--- NOTE | 2016-12-09 05:35 | NUR ---
IV INFILTRATED, NEW IV LINE INSERTED AT THE RIGHT WRIST G 22 BY ОЛЬГА ESPARZA.
[2016-12-09 06:47] LABS: ANION GAP 11.9 (8-16); CARBON DIOXIDE 28.6 mmol/L (21-32); CREATININE 0.9 mg/dL (0.6-1.3); POTASSIUM 3.5 mmol/L (3.5-5.1)
[2016-12-09] MEDS: LEVOTHYROXINE 0.075 MG TAB PO SCH (06:51)
--- NOTE | 2016-12-09 07:00 | NUR ---
NO COMPLAINT OF ABDOMINAL PAIN DURING SHIFT, WILL ENDORSE TO AM NURSE FOR CONTINUITY OF CARE.
--- NOTE | 2016-12-09 07:05 | NUR ---
RECEIVED REPORT FROM PAXTON MORALES. PT IS RESTING IN BED, A/OX4, AMBULATORY, SKIN IS INTACT, IV ON THE RT WRIST, PATENT, INTACT, SL, NO S/S OF RESPIRATORY DISTRESS OR DISCOMFORT NOTED, DISCUSSED PLAN OF CARE WITH PT, PT VERBALIZED UNDERSTANDING, SAFETY/FALL PRECAUTIONS ARE IN PLACE, CALL LIGHT IS WITHIN REACH, WILL CONTINUE TO MONITOR.
[2016-12-09 08:00] VITALS: BP 123/64
[2016-12-09] MEDS: amLODIPine 5 MG TAB PO SCH (09:03)
[2016-12-09] MEDS: FLUoxetine 20 MG CAP PO SCH (09:03)
[2016-12-09] MEDS: ATORVASTATIN 20 MG TAB PO SCH (09:03)
[2016-12-09] MEDS: LABETALOL 100 MG TAB PO SCH (09:03)
--- NOTE | 2016-12-09 09:15 | NUR ---
PT RESTING IN BED WATCHING TV, CALL LIGHT WITHIN REACH.
--- NOTE | 2016-12-09 10:00 | NUR ---
RECEIVED PHONE CALL, PER DR. COWAN OBTAIN CONSENT FOR PROCEDURE SCHEDULED TOMORROW 12/10/16 AT 1230, ORDER EKG, PT, INR AND CHEST XRAY.
--- NOTE | 2016-12-09 11:30 | NUR ---
PT AMBULATING DOWN THE WHITT AT THIS TIME.
--- NOTE | 2016-12-09 12:33 | NUR ---
12/09/16 RD FOLLOW-UP ASSESSMENT COMPLETED PLEASE REFER TO NUTRITION ASSESSMENT UNDER CARE ACTIVITY FOR ESTIMATED NUTRITIONAL NEEDS. 1. CONTINUE FULL LIQUID DIET, WHEN MEDICALLY FEASIBLE ADVANCE TOLERATED TO REGULAR DIET 2. RD TO FOLLOW-UP 3-5 DAYS; MODERATE RISK VADIM MERCADO, RADHA
--- NOTE | 2016-12-09 13:30 | NUR ---
PT IS RESTING IN BED TALKING ON THE PHONE.
--- NOTE | 2016-12-09 14:30 | NUR ---
PT SITTING ON CHAIR AT THE SIDE OF THE BED.
[2016-12-09] MEDS ORDERED: MAG SULF 2000 MG/WATER PREMIX 50 ML IV ONE (14:55)
[2016-12-09 16:00] VITALS: BP 133/60
--- NOTE | 2016-12-09 16:30 | NUR ---
PT RESTING IN BED, NO S/S OF RESPIRATORY DISTRESS OR DISCOMFORT NOTED, CALL LIGHT WITHIN REACH.
--- NOTE | 2016-12-09 18:30 | NUR ---
PT IS RESTING IN BED WATCHING TV, CALL LIGHT WITHIN REACH.
--- NOTE | 2016-12-09 19:20 | NUR ---
ENDORSED PT TO PAXTON MORALES. FOR CONTINUITY OF CARE, PT STABLE AT THIS TIME.
--- NOTE | 2016-12-09 19:21 | NUR ---
RECD. SITTING ON BED, AWAKE, A/OX4. RESPIRATION EVEN AND UNLABORED. CONVERSING WITH VISITORS AT THE BEDSIDE. IV SALINE LOCK AT THE RIGHT WRIST G 22, PATENT AND INTACT. PLAN OF CARE FOR THE SHIFT DISCUSSED. VERBALIZED UNDERSTANDING. DENIES ABDOMINAL PAIN AT THIS TIME 010.
--- NOTE | 2016-12-09 19:45 | NUR ---
Patient's Plan of Care was discussed and reviewed with PARTS ROOM CLERK: CARMEN JOHANSEN
--- NOTE | 2016-12-09 21:00 | NUR ---
AMBULATED TO BR TO VOID, GAIT STEADY.
[2016-12-09] MEDS: DEXT 5% / NACL 0.45% 1,000 ML IV SCH (21:45)
[2016-12-09] MEDS ORDERED: traZODone 50 MG TAB PO PRN (21:45)
--- NOTE | 2016-12-09 23:30 | NUR ---
REMINDED NPO PAST MIDNIGHT, VERBALIZED UNDERSTANDING.
[2016-12-10] VITALS: BP 124/60
--- NOTE | 2016-12-10 | NUR ---
REQUESTED TO BE DISCONNECTED FROM IV FLUIDS, AGREED TO PUT BACK IN THE MORNING.
--- NOTE | 2016-12-10 04:00 | NUR ---
STILL SLEEPING COMFORTABLY IN BED.
[2016-12-10 04:23] LABS: INR 1.1 (0.8-1.2); PROTHROMBIN TIME 10.7 secs (10.8-13.4)
[2016-12-10 05:04] LABS: HEMOGLOBIN 10.5 g/dL (12.0-16.0); NEUTROPHILS % (AUTO) 57.2 % (42.2-75.2)
[2016-12-10] MEDS: LEVOTHYROXINE 0.075 MG TAB PO SCH (05:56)
[2016-12-10 06:00] LABS: BASOPHILS # (AUTO) 0.3 K/uL (0.00-0.22); BASOPHILS % (AUTO) 4.2 % (0.0-2.0); EOSINOPHILS # (AUTO) 0.3 K/uL (0-0.4); EOSINOPHILS % (AUTO) 4.2 % (0.0-4.0); HEMATOCRIT 32.8 % (36-48); LYMPHOCYTES # (AUTO) 1.8 K/uL (2.5-16.5); LYMPHOCYTES % (AUTO) 27.6 % (20.5-51.1); MEAN CORPUSCULAR HEMOGLOBIN 26 pg (27-31); MEAN CORPUSCULAR HGB CONC 32 g/dL (33-37); MEAN CORPUSCULAR VOLUME 82 fL (80-94); MONOCYTES # (AUTO) 0.4 K/uL (0.8-1.0); MONOCYTES % (AUTO) 6.8 % (1.7-9.3); NEUTROPHILS # (AUTO) 3.6 K/uL (1.8-7.7); PLATELET COUNT (AUTO) 249 K/uL (140-450); RED BLOOD CELL COUNT(AUTO) 4.02 MIL/uL (4.20-5.40); RED CELL DISTRIBUTION WIDTH 14.1 % (11.6-13.7); WHITE BLOOD COUNT (AUTO) 6.4 K/uL (4.8-10.8)
--- NOTE | 2016-12-10 06:54 | NUR ---
STILL SLEEPING COMFORTABLY. CONDITION REMAIN STABLE. NO COMPLAINT OF ABDOMINAL PAIN. WILL ENDORSE TO AM NURSE FOR CONTINUITY OF CARE.
--- NOTE | 2016-12-10 07:15 | NUR ---
ENDORSED TO ОЛЬГА [place] FOR CONTINUITY OF CARE.
--- NOTE | 2016-12-10 07:16 | NUR ---
RECEIVED REPORT AT BEDSIDE. PT RESTING IN BED. NO S/S OF ACUTE DISTRESS NOTED. IV SITE PATENT AND INTACT. DENIES ABDOMINAL PAIN. AAOX4. AMBULATORY.
[2016-12-10 08:00] VITALS: BP 115/68
[2016-12-10 08:14] LABS: ANION GAP 9.7 (8-16); CALCIUM 8.3 mg/dL (8.5-10.1); CARBON DIOXIDE 30.1 mmol/L (21-32); CREATININE 0.9 mg/dL (0.6-1.3); POTASSIUM 3.8 mmol/L (3.5-5.1)
--- NOTE | 2016-12-10 08:30 | NUR ---
PATIENT TOOK A SHOWER. NO S/S OF ACUTE DISTRESS NOTED.
[2016-12-10] MEDS ORDERED: BUPIVACAINE-MPF 0.25% 30 ML VIAL INJ ONE (08:31)
[2016-12-10] MEDS: ATORVASTATIN 20 MG TAB PO SCH (09:29)
[2016-12-10] MEDS: FLUoxetine 20 MG CAP PO SCH (09:29)
[2016-12-10] MEDS: amLODIPine 5 MG TAB PO SCH (09:29)
[2016-12-10] MEDS: LABETALOL 100 MG TAB PO SCH (09:30)
--- NOTE | 2016-12-10 10:42 | NUR ---
PATIENT TAKEN OFF FLOOR FOR SURGICAL PROCEDURE.
[2016-12-10] MEDS ORDERED: HYDROmorphone PFS 2 MG/ML SYR ONE (10:59)
[2016-12-10] MEDS ORDERED: fentaNYL 0.05 MG/ML VIAL ONE (10:59)
[2016-12-10] MEDS ORDERED: PHENYLEPHRINE 10 MG/ML VIAL ONE (12:02)
[2016-12-10] MEDS ORDERED: DESFLURANE 240 ML BTL INH ONE (12:02)
[2016-12-10] MEDS ORDERED: KETOROLAC 15 MG/ML VIAL ONE (12:02)
[2016-12-10] MEDS ORDERED: GLYCOPYRROLATE 0.2 MG/ML VIAL ONE (12:02)
[2016-12-10] MEDS ORDERED: ROCURONIUM 50 MG/5 ML VIAL IV ONE (12:02)
[2016-12-10] MEDS ORDERED: PROPOFOL 200 MG/20 ML VIAL IV ONE (12:02)
[2016-12-10] MEDS ORDERED: ONDANSETRON 4 MG/2 ML VIAL ONE (12:02)
[2016-12-10] MEDS ORDERED: ceFAZolin 1,000 MG VIAL ONE (12:15)
[2016-12-10] MEDS ORDERED: traZODone 50 MG TAB PO PRN (13:21)
[2016-12-10] MEDS ORDERED: MAG SULF 2000 MG/WATER PREMIX 50 ML IV SCH (14:00)
--- NOTE | 2016-12-10 14:12 | NUR ---
PATIENT RETURNED FROM OR. PATIENT IN STABLE CONDITION. ABDOMINAL INCISIONS DRY AND INTACT. PATIENT DID NOT HAVE PROCEDURE AT THIS FACILITY AND PER MD WOULD REQUIRE HIGHER LEVEL OF CARE FOR THIS PROCEDURE.
[2016-12-10 16:00] VITALS: BP 141/74
--- NOTE | 2016-12-10 16:00 | NUR ---
PATIENT AND FAMILY MADE AWARE AT BEDSIDE OF UPCOMING PLANS AND PROCEDURES. PT HAS ALL NEEDS MET. NO S/S OF ACUTE DISTRESS.
--- NOTE | 2016-12-10 17:00 | NUR ---
PATIENT RESTING IN BED. NO S/S OF ACUTE DISTRESS NOTED. IV SITE PATENT AND INTACT.
[2016-12-10] MEDS: DEXT 5% / NACL 0.45% 1,000 ML IV SCH (17:45)
--- NOTE | 2016-12-10 19:25 | NUR ---
ENDORSED PLAN OF CARE TO NURSE CARMEN AT PT BEDSIDE. NO S/S OF ACUTE DISTRESS NOTED.
--- NOTE | 2016-12-10 19:26 | NUR ---
RECD. RESTING IN BED, AWAKE, A/OX4. RESPIRATION EVEN AND UNLABORED. IV OF D51/2 NS AT 50 ML/HR INFUSING, RIGHT WRIST G22. INCISION IN THE ABDOMEN (3) COVERED WITH SMALL TAPE, ALL DRY AND INTACT. PLAN OF CARE FOR THE SHIFT DISCUSSED. VERBALIZED UNDERSTANDING. DENIES PAIN 0/10. SISTER AT THE BEDSIDE.
--- NOTE | 2016-12-10 20:29 | NUR ---
PATIENT STATES THAT SHE IS HAVING ABD 5/10 PAIN AND FEELS NAUSEATED MD DEVRIES EXCHANGE HAS BEEN PAGED WILL WAIT FOR HIS CALL BACK.
--- NOTE | 2016-12-10 22:06 | NUR ---
UNABLE TO SLEEP, MEDICATED WITH TRAZODONE 100 MG. PO ORDERED.
--- NOTE | 2016-12-10 23:30 | NUR ---
SLEEPING COMFORTABLY IN BED.
[2016-12-11] VITALS: BP 128/60
--- NOTE | 2016-12-11 04:00 | NUR ---
AMBULATED THREE TIMES TO VOID IN THE BR.
[2016-12-11] MEDS: LEVOTHYROXINE 0.075 MG TAB PO SCH (06:00)
--- NOTE | 2016-12-11 06:00 | NUR ---
WAKEN UP TO DRINK AM MEDICATION. NO COMPLAINT OF PAIN 0/10.
[2016-12-11 06:18] LABS: BASOPHILS # (AUTO) 0.1 K/uL (0.00-0.22); BASOPHILS % (AUTO) 1.7 % (0.0-2.0); EOSINOPHILS # (AUTO) 0.2 K/uL (0-0.4); HEMOGLOBIN 9.8 g/dL (12.0-16.0); LYMPHOCYTES # (AUTO) 1.6 K/uL (2.5-16.5); MEAN CORPUSCULAR HEMOGLOBIN 26 pg (27-31); MONOCYTES # (AUTO) 0.5 K/uL (0.8-1.0)
[2016-12-11 06:43] LABS: EOSINOPHILS % (AUTO) 2.4 % (0.0-4.0); HEMATOCRIT 30.8 % (36-48); LYMPHOCYTES % (AUTO) 25.4 % (20.5-51.1); MEAN CORPUSCULAR HGB CONC 32 g/dL (33-37); MEAN CORPUSCULAR VOLUME 82 fL (80-94); MONOCYTES % (AUTO) 7.2 % (1.7-9.3); NEUTROPHILS # (AUTO) 3.9 K/uL (1.8-7.7); NEUTROPHILS % (AUTO) 63.3 % (42.2-75.2); PLATELET COUNT (AUTO) 228 K/uL (140-450); RED BLOOD CELL COUNT(AUTO) 3.78 MIL/uL (4.20-5.40); RED CELL DISTRIBUTION WIDTH 14.5 % (11.6-13.7); WHITE BLOOD COUNT (AUTO) 6.3 K/uL (4.8-10.8)
[2016-12-11 06:45] LABS: ANION GAP 11.1 (8-16); CALCIUM 8.1 mg/dL (8.5-10.1); CARBON DIOXIDE 28.7 mmol/L (21-32); CREATININE 1.1 mg/dL (0.6-1.3); POTASSIUM 3.8 mmol/L (3.5-5.1)
--- NOTE | 2016-12-11 06:56 | NUR ---
CONDITION REMAIN STABLE. WILL ENDORSE TO AM NURSE FOR CONTINUITY OF CARE.
--- NOTE | 2016-12-11 07:15 | NUR ---
ENDORSED TO ОЛЬГА [place] FOR CONTINUITY OF CARE.
--- NOTE | 2016-12-11 07:16 | NUR ---
RECEIVED REPORT FROM NIGHT NURSE AT PT BEDSIDE. PT RESTING IN BED. DENIES DISCOMFORT. NO S/S OF RESPIRATORY DISTRESS. INCISION SITES DRY AND INTACT. IV SITE PATENT AND INTACT. AAOX4. AMBULATORY. CALL LIGHT WITHIN REACH.
[2016-12-11 08:00] VITALS: BP 122/55
[2016-12-11] MEDS: LABETALOL 100 MG TAB PO SCH (08:41)
[2016-12-11] MEDS: amLODIPine 5 MG TAB PO SCH (08:41)
[2016-12-11] MEDS: FLUoxetine 20 MG CAP PO SCH (08:41)
[2016-12-11] MEDS: ATORVASTATIN 20 MG TAB PO SCH (08:41)
--- NOTE | 2016-12-11 10:10 | NUR ---
PT TOLERATED AM MEDS AND PO DIET. NO S/S OF ACUTE DISTRESS NOTED.
--- NOTE | 2016-12-11 13:21 | NUR ---
PT TOLERATED PO LUNCH REGULAR DIET. NO S/S OF ACUTE DISTRESS.
[2016-12-11] MEDS: DEXT 5% / NACL 0.45% 1,000 ML IV SCH (13:45)
--- NOTE | 2016-12-11 14:20 | NUR ---
PATIENT SITTING UP AT BEDSIDE. NO S/S OF ACUTE DISTRESS. DENIES DISCOMFORT.
--- NOTE | 2016-12-11 14:41 | NUR ---
Social Service Note: Per patient, she stated she has an appt for hernia surgery at [facility] in January 2017, stated her pcp from [facility] made referral for her.
[2016-12-11 16:00] VITALS: BP 107/53
--- NOTE | 2016-12-11 16:20 | NUR ---
PATIENT RESTING IN BED. NO S/S OF ACUTE DISTRESS.
--- NOTE | 2016-12-11 18:55 | NUR ---
PATIENT SEEN BY DR. DEVRIES AT PT BEDSIDE. MD SPOKE WITH PATIENT AND SON AT BEDSIDE REGARDING DISCHARGE AND PLAN OF CARE.
--- NOTE | 2016-12-11 19:30 | NUR ---
ENDORSED PLAN OF CARE TO NIGHT NURSE AT PT BEDSIDE. PT RESTING IN BED. NO S/S OF ACUTE DISTRESS NOTED.
[2016-12-11 20:00] VITALS: BP 148/90
--- NOTE | 2016-12-11 20:49 | NUR ---
MD DEVRIES HASN'T CALLED ME BACK PATIENT STATES," I VOMITED THREE TIMES ALREADY SINCE SIX THIS EVENING AND I'M STILL HAVING ABDOMINAL PAIN." MD DEVRIES EXCHANGE CALLED AGAIN WILL AWAIT FOR HIS RETURN CALL.
--- NOTE | 2016-12-11 20:59 | NUR ---
MD DEVRIES CALLED BACK I INFORMED HIM THAT MY PATIENT IS IN PAIN 510 AND PATIENT STATES SHE HAS VOMITED 3 TIMES SINCE 6PM THIS EVENING I DIDN'T WITNESSED THIS BUT I INFORMED MD THAT PATIENT IS NAUSEATED. STATES," AFTER SHE IS DISCHARGED WHEN SHE GOES TO THE PHARMACY SHE CAN HAVE THE PHARMACIST CALLED ME AND I WILL SEND HER A PRESCRIPTION FOR ZOFRAN."MD DEVRIES GAVE NEW ORDERS FOR PAIN MEDICATION.ORDERS WILL BE CARRIED OUT.
[2016-12-11] MEDS ORDERED: HYDROcodone/APAP 5/325 MG 1 TAB TAB PO ONE (21:00)
--- NOTE | 2016-12-11 22:39 | NUR ---
IM WALKED IN THE PATIENT ROOM WITH HER DISCHARGE INSTRUCTIONS AND PATIENT STATES,"MY PAIN IS A 10/10 AND I FEEL LIKE IM NOT READY TO GO HOME TODAY AND I STILL FEEL NAUSEATED."MD DEVRIES EXCHANGED HAS BEEN CALLED WILL WAIT FOR HIS CALL BACK.
--- NOTE | 2016-12-11 22:51 | NUR ---
MD DEVRIES CALLED BACK AND INFORMED HIM THAT PATIENT STATES,"IM CONTINUE TO HAVE ABDOMINAL PAIN. PT STATES ITS 03/23." PATIENT STATES,"I STILL FEEL VERY NAUSEATED." AND HE WAS INFORMED THAT PATIENT STATES,"IM NOT READY TO GO HOME TONIGHT." MD GAVE NEW ORDERS WILL CARRY THEM OUT.
--- NOTE | 2016-12-11 22:56 | NUR ---
PATIENT IS AWARE THAT HER DISCHARGE WILL BE HOLD FOR [place] AND WAS INFORMED THAT MD ORDERED MEDICATION FOR PAIN AND NAUSEA AND ORDERED FOR ABD ULTRASOUND TOMORROW.PATIENT VERBALIZES UNDERSTANDING.WILL CONTINUE TO MONITOR.PATIENT IS ALSO AWARE THAT SHE WILL HAVE TO BE NPO FOR ABD ULTRASOUND TOMORROW.PATIENT VERBALIZES UNDERSTANDING.
[2016-12-11] MEDS ORDERED: HYDROcodone/APAP 5/325 MG 1 TAB TAB PO PRN (23:00)
[2016-12-11] MEDS: ONDANSETRON 4 MG TAB PO PRN (23:19)
[2016-12-12] VITALS: BP 130/76
--- NOTE | 2016-12-12 | NUR ---
PATIENT IS CURRENTLY AWAKE RESTING IN BED COMPLAINS OF ABD PAIN PT STATES,"I THINK IT MAY BE GAS." I ASKED HER WHEN WAS THE LAST TIME SHE HAD A BOWEL MOVEMENT SHE SAID YESTERDAY.I ENCOURAGED THE PATIENT TO WALK AND TRY TO AMBULATE A LITTLE MORE.PATIENT VERBALIZES UNDERSTANDING.CALL LIGHT WITHIN REACH.
--- NOTE | 2016-12-12 01:53 | NUR ---
PATIENT SITTING IN BED REPORT ENDORSED TO ОЛЬГА HORTA SHE WILL RESUME CARE OF THE PATIENT.PATIENT CONTINUES TO BE NPO FOR ABD ULTRASOUND.
--- NOTE | 2016-12-12 01:55 | NUR ---
RECEIVED REPORT FROM ОЛЬГА ELLIS AT BEDSIDE. INITIAL ASSESSMENT COMPLETED. PT AAOX4. PT HAS IV ON RIGHT WRIST G 22. PT HAS THREE SMALL INCISIONS S/P LAP HERNIA REPAIR. PT STABLE IN BED AT THIS TIME. EXPLAINED PLAN OF CARE TO PT AND SHE VERBALIZES UNDERSTANDING. WILL CONTINUE TO MONITOR PT.
--- NOTE | 2016-12-12 03:20 | NUR ---
ENDORSED PT TO ОЛЬГА ELLIS. PT IN STABLE CONDITION.
[2016-12-12] MEDS: HYDROcodone/APAP 10/325 MG 1 TAB TAB PO PRN (03:51)
[2016-12-12] MEDS: ONDANSETRON 4 MG TAB PO PRN (03:51)
--- NOTE | 2016-12-12 03:51 | NUR ---
PATIENT COMPLAINS OF SEVERE ABD PAIN 7/10 WAS MEDICATED FOR PAIN.PATIENT ALSO COMPLAINS OF FEELING NAUSEATED VOMITING BROWNISH EMESIS NOTED IN BASIN WAS MEDICATED WITH ZOFRAN.WILL CONTINUE TO MONITOR.
[2016-12-12] MEDS: LEVOTHYROXINE 0.075 MG TAB PO SCH (06:02)
--- NOTE | 2016-12-12 06:10 | NUR ---
PATIENT STABLE RESTING IN BED PATIENT STATES,"I FEEL BETTER." PATIENT NEEDS MET. WILL CONTINUE TO MONITOR.CALL LIGHT WITHIN REACH.
--- NOTE | 2016-12-12 07:29 | NUR ---
PATIENT AMBULATING IN HALLWAY AND BACK IN ROOM REPORT ENDORSED AT BEDSIDE TO RN JUSTEN SHE WILL RESUME CARE OF THE PATIENT.
--- NOTE | 2016-12-12 07:30 | NUR ---
RECEIVED REPORT FROM THE MATERIAL LOADER NURSE AT BEDSIDE FOR CONTINUITY OF CARE. PT IS AWAKE AND ORIENTED X4. ARABIC SPEAKING. SPEAKS SOME ITALIAN. INTRODUCED MYSELF AND UPDATED THE BOARD. V/S WITHIN NORMAL RANGE. PT IS AMBULATORY, SKIN INTACT, C/O VERY LITTLE NAUSEA AND VERY LITTLE ABDOMINAL PAIN. PT HAS NO IV ACCESS. WILL BE BACK WITH MORNING MEDS. POSSIBLE D/C TODAY.
[2016-12-12 08:00] VITALS: BP 94/59
[2016-12-12 08:35] LABS: BASOPHILS # (AUTO) 0.1 K/uL (0.00-0.22); BASOPHILS % (AUTO) 1.7 % (0.0-2.0); EOSINOPHILS # (AUTO) 0.1 K/uL (0-0.4); EOSINOPHILS % (AUTO) 1.3 % (0.0-4.0); HEMATOCRIT 35.9 % (36-48); HEMOGLOBIN 11.7 g/dL (12.0-16.0); LYMPHOCYTES # (AUTO) 0.8 K/uL (2.5-16.5); LYMPHOCYTES % (AUTO) 9.3 % (20.5-51.1); MEAN CORPUSCULAR HEMOGLOBIN 27 pg (27-31); MEAN CORPUSCULAR HGB CONC 33 g/dL (33-37); MEAN CORPUSCULAR VOLUME 81 fL (80-94); MONOCYTES # (AUTO) 0.1 K/uL (0.8-1.0); MONOCYTES % (AUTO) 1.4 % (1.7-9.3); NEUTROPHILS # (AUTO) 7.5 K/uL (1.8-7.7); NEUTROPHILS % (AUTO) 86.3 % (42.2-75.2); PLATELET COUNT (AUTO) 273 K/uL (140-450); RED BLOOD CELL COUNT(AUTO) 4.42 MIL/uL (4.20-5.40); RED CELL DISTRIBUTION WIDTH 14.2 % (11.6-13.7); WHITE BLOOD COUNT (AUTO) 8.6 K/uL (4.8-10.8)
[2016-12-12] MEDS: FLUoxetine 20 MG CAP PO SCH (08:37)
[2016-12-12] MEDS: LABETALOL 100 MG TAB PO SCH (08:38)
[2016-12-12] MEDS: amLODIPine 5 MG TAB PO SCH (08:38)
[2016-12-12] MEDS: ATORVASTATIN 20 MG TAB PO SCH (08:38)
[2016-12-12] MEDS: DEXT 5% / NACL 0.45% 1,000 ML IV SCH (08:39)
[2016-12-12 08:41] LABS: ANION GAP 14.3 (8-16); CALCIUM 8.7 mg/dL (8.5-10.1); CARBON DIOXIDE 27.6 mmol/L (21-32); CREATININE 1.3 mg/dL (0.6-1.3); POTASSIUM 3.9 mmol/L (3.5-5.1)
--- NOTE | 2016-12-12 08:45 | NUR ---
ADMINISTERED MORNING MEDS. HELD 2 BP MEDS D/T LOW BP. PT TOLERATED WELL. WILL CONTINUE TO MONITOR PT.
--- NOTE | 2016-12-12 10:28 | NUR ---
PT SLEEPING SOUNDLY. NO SIGNS OF DISTRESS. WILL CONTINUE TO MONITOR PT.
--- NOTE | 2016-12-12 11:47 | NUR ---
ELECTRONIC SYSTEMS SECURITY ASSESSMENT WITH PT. CHANGING LINENS AND NEW GOWN. ASSESSED SURGICAL INCISIONS. THEY ARE COVERED WITH ISLAND DRESSING X 3 ON HER R SIDE OF ABDOMEN. IT IS DRY AND INTACT. NO DRAINAGE NOTED. PT ALSO HAS A VERY LARGE LUMP IN HER L ABDOMEN AND UMBILICAL AREA. PT TOLERATED WELL. DENIES ANY PAIN. WILL CONTINUE TO MONITOR PT. WAITING FOR DR. DEVRIES. POSSIBLE D/C TODAY.
--- NOTE | 2016-12-12 14:00 | NUR ---
DR. LEO CAME AND SAW PT. PT WAS TO BE D/C'D TODAY BUT DR. LEO WOULD LIKE TO KEEP HER ONE MORE DAY D/T WORSENING KIDNEY FUNCTION. DR ORDERED IV INSERT, NS 75ML/HR, AND CLEAR LIQUID DIET. ORDERED CANCELLATION OF DISCHARGE ORDER. GAVE HER A CLEAR LIQ DIET TRAY. WILL INSERT IV AND HANG FLUIDS ORDERED.
[2016-12-12] MEDS: NACL 0.9% 1,000 ML IV SCH (15:04)
--- NOTE | 2016-12-12 15:05 | NUR ---
STARTED NEW IV ON R HAND 22G. PT TOLERATED WELL. NS AT 75ML/HR.
[2016-12-12 16:00] VITALS: BP 138/65
--- NOTE | 2016-12-12 18:02 | NUR ---
PT IS SITTING UP EATING DINNER. FRIEND AT BEDSIDE. NO COMPLAINTS AT THIS TIME. WILL CONTINUE MONITOR PT.
--- NOTE | 2016-12-12 19:16 | NUR ---
ENDORSED PT TO THE RESTORATION SILVERSMITH NURSE AT BEDSIDE FOR CONTINUITY OF CARE. PT IN STABLE CONDITION.
--- NOTE | 2016-12-12 19:17 | NUR ---
PATIENT IS CURRENTLY AWAKE ALERT SITTING IN BED WITH FAMILY AT BEDSIDE.PATIENT HAS NO COMPLAINS OF PAIN OR DISCOMFORT.PATIENT HAS NO COMPLAINS OF NAUSEA OR VOMITING.IVF INFUSING WELL AND IV SITE REMAINS PATENT.PATIENT AMBULATES IN THE HALLWAYS.CALL LIGHT WITHIN REACH.
[2016-12-12 20:00] VITALS: BP 124/69
--- NOTE | 2016-12-12 20:00 | NUR ---
DISCUSSED PLAN OF CARE WITH RHONDA MATTA.
--- NOTE | 2016-12-12 21:05 | NUR ---
PATIENT SMILING WALKING AROUND THE NURSES STATION.PATIENT DENIES PAIN.
--- NOTE | 2016-12-12 23:23 | NUR ---
PATIENT SLEEPING IN BED AT THIS TIME.NEEDS MET.IVF INFUSING WELL.CALL LIGHT WITHIN REACH.
[2016-12-13 00:40] VITALS: BP 113/55
--- NOTE | 2016-12-13 00:40 | NUR ---
PATIENT IS CURRENTLY RESTING IN BED SLEEPING AT THIS TIME AWAKENED FOR VITAL SIGNS.PATIENT DENIES PAIN AT THIS TIME.PATIENT DENIES N/V WILL CONTINUE TO MONITOR.CALL LIGHT WITHIN REACH.
--- NOTE | 2016-12-13 03:31 | NUR ---
PATIENT IS CURRENTLY SLEEPING IN BED IVF INFUSING WELL IV SITE PATENT WILL CONTINUE TO MONITOR.
[2016-12-13] MEDS: NACL 0.9% 1,000 ML IV SCH ×2 (03:50→04:53)
[2016-12-13] MEDS: HYDROcodone/APAP 10/325 MG 1 TAB TAB PO PRN ×2 (04:52→14:00)
[2016-12-13] MEDS: LEVOTHYROXINE 0.075 MG TAB PO SCH (05:40)
--- NOTE | 2016-12-13 05:44 | NUR ---
PATIENT IS CURRENTLY STABLE RESTING IN BED.IVF INFUSING WELL IV SITE PATENT.WILL CONTINUE TO MONITOR.CALL LIGHT WITHIN REACH.
--- NOTE | 2016-12-13 06:43 | NUR ---
PT SLEEPING NO DISTRESS WILL CONTINUE TO MONITOR.
[2016-12-13 06:47] LABS: BASOPHILS # (AUTO) 0.1 K/uL (0.00-0.22); EOSINOPHILS # (AUTO) 0.1 K/uL (0-0.4); EOSINOPHILS % (AUTO) 1.9 % (0.0-4.0); HEMATOCRIT 30.3 % (36-48); HEMOGLOBIN 9.7 g/dL (12.0-16.0); LYMPHOCYTES # (AUTO) 1.8 K/uL (2.5-16.5); LYMPHOCYTES % (AUTO) 27.8 % (20.5-51.1); MEAN CORPUSCULAR HEMOGLOBIN 26 pg (27-31); MEAN CORPUSCULAR HGB CONC 32 g/dL (33-37); MEAN CORPUSCULAR VOLUME 81 fL (80-94); MONOCYTES # (AUTO) 0.5 K/uL (0.8-1.0); MONOCYTES % (AUTO) 7.2 % (1.7-9.3); NEUTROPHILS # (AUTO) 4.1 K/uL (1.8-7.7); NEUTROPHILS % (AUTO) 61.1 % (42.2-75.2); PLATELET COUNT (AUTO) 233 K/uL (140-450); RED BLOOD CELL COUNT(AUTO) 3.73 MIL/uL (4.20-5.40); RED CELL DISTRIBUTION WIDTH 13.9 % (11.6-13.7); WHITE BLOOD COUNT (AUTO) 6.6 K/uL (4.8-10.8)
[2016-12-13 06:50] LABS: ANION GAP 9.6 (8-16); CALCIUM 7.8 mg/dL (8.5-10.1); CARBON DIOXIDE 30.9 mmol/L (21-32); CREATININE 1.1 mg/dL (0.6-1.3); POTASSIUM 3.5 mmol/L (3.5-5.1)
--- NOTE | 2016-12-13 07:18 | NUR ---
PATIENT STABLE REPORT ENDORSED AT BEDSIDE TO ОЛЬГА CAMPUZANO.
--- NOTE | 2016-12-13 07:19 | NUR ---
RECEIVED REPORT FROM THE INTERNATIONAL RELATIONS PROFESSOR NURSE AT BEDSIDE FOR CONTINUITY OF CARE. PT IS AWAKE AND ORIENTED. INTRODUCED MYSELF AND UPDATED THE BOARD. IV STILL IN R HAND 22G NS AT 75ML. NO BM YET. JUST PASSING GAS. AMBULATING FREQUENTLY. PT DENIES PAIN. NO COMPLAINTS AT THIS TIME. WILL CONTINUE TO MONITOR PT.
--- NOTE | 2016-12-13 07:40 | NUR ---
V/S WITHIN NORMAL RANGE. PT STILL WEARING THE ABD BINDER. BANDAGE STILL IN PLACE. DENIES PAIN. WILL CONTINUE TO MONITOR PT.
[2016-12-13 08:00] VITALS: BP 133/69
[2016-12-13] MEDS: amLODIPine 5 MG TAB PO SCH (08:34)
[2016-12-13] MEDS: FLUoxetine 20 MG CAP PO SCH (08:35)
[2016-12-13] MEDS: LABETALOL 100 MG TAB PO SCH (08:35)
[2016-12-13] MEDS: ATORVASTATIN 20 MG TAB PO SCH (08:35)
--- NOTE | 2016-12-13 08:40 | NUR ---
ADMINISTERED MORNING MEDS. PT TOLERATED THEM WELL. ALL NEEDS MET AT THIS TIME. WILL CONTINUE TO MONITOR PT.
--- NOTE | 2016-12-13 10:30 | NUR ---
PT AMBULATING IN THE HALLWAYS. NO SIGNS OF DISTRESS. WILL CONTINUE TO MONITOR PT.
--- NOTE | 2016-12-13 12:30 | NUR ---
PT WANTED A SHOWER. I WRAPPED HER IV SO IT DOESN'T GET WET. REMOVED HER ISLAND DRESSING FROM HER INCISIONS. REMOVED THE ABDOMINAL BINDERS. EDUCATED PT RE. PATTING DRY HER INCISIONS. GAVE HER TOWELS, NEW GOWN, AND SOAP. WILL CONTINUE TO MONITOR PT.
--- NOTE | 2016-12-13 14:05 | NUR ---
ADMINISTERED PAIN MED. PT HAS ABDOMINAL PAIN. 11/21. PT TOLERATED WELL. WILL CONTINUE TO MONITOR PT.
--- NOTE | 2016-12-13 14:21 | NUR ---
12/13/16 RD FOLLOW UP COMPLETED PLEASE REFER TO NUTRITION PROGRESS NOTE UNDER CARE ACTIVITY FOR ESTIMATED NUTRITION NEEDS. RD RECOMMENDATIONS: 1. CONTINUE CLEAR LIQUID DIET MEDICALLY APPROPRIATE AND PER MD. 2. IF/WHEN PT IS MEDICALLY STBALE TO ADVANCE DIET, CONSIDER REGULAR DIET. 3. IF PT CONTINUES WITH INADEQUATE PO INTAKE, CONSIDER ADDING BOOST/BOOST BREEZE WITH MEALS FOR ADDITIONAL ENERGY REPLETION. 4. RD WILL F/U 3-5 DAYS; MODERATE RISK. GILL SAUCEDA, RD
[2016-12-13] MEDS ORDERED: ACET-4275 PO (15:37)
--- NOTE | 2016-12-13 15:40 | NUR ---
NOTIFIED PT OF DISCHARGE PLAN FROM . PT SAID HER RIDE WON'T GET HERE UNTIL 1800. WILL START D/C .
[2016-12-13 16:00] VITALS: BP 113/62
--- NOTE | 2016-12-13 17:55 | NUR ---
GAVE DISCHARGE INSTRUCTIONS. PT VERBALIZED UNDERSTANDING. ANSWERED ALL QUESTIONS. REMOVED IV, CANNULA INTACT. NO BLEEDING NOTED. PT TOLERATED WELL. REMOVED ID BANDS. PT WILL HAVE SOME DINNER. GET DRESSED, GATHER HER THINGS AND WAIT FOR HER SON TO ARRIVE FOR YARROW GATHERER. WILL LET US KNOW WHEN HE IS HERE.
--- NOTE | 2016-12-13 18:00 | NUR ---
TOOK PICTURES OF WOUND.
--- NOTE | 2016-12-13 19:05 | NUR ---
PT UNABLE TO FIND A RIDE HOME. FINALLY SHE WAS ABLE TO FIND A RIDE THROUGH HER ROOM MATE'S SON. HE WILL TAKE HER HOME. DISCHARGE IS DONE. JUST WAITING FOR HER TO LEAVE.
--- NOTE | 2016-12-13 19:11 | NUR ---
PT WALKED OUT ACCOMPANIED BY HER RIDE AND PRODUCTION LAPPING MACHINE OPERATOR. PT IS IN STABLE CONDITION.
== END 2016-12-13 19:10 | disposition home or self-care (01) | DRG 228 ==
LOC: MED 23:25 → MTU 12-04 02:46
PROVIDERS: ADMIT Preventive Medicine Preventive Medicine/Occupational Environmental Medicine; ATTEND Preventive Medicine Preventive Medicine/Occupational Environmental Medicine
PROC: 0WQF4ZZ Repair Abdominal Wall, Percutaneous Endoscopic Approach (ICD-10-PCS; principal; 2016-12-04)
DX: K42.0 Umbilical hernia with obstruction, without gangrene (principal); N17.9 Acute kidney failure, unspecified; E87.0 Hyperosmolality and hypernatremia; E11.65 Type 2 diabetes mellitus with hyperglycemia; E83.51 Hypocalcemia; E83.42 Hypomagnesemia; E11.22 Type 2 diabetes mellitus with diabetic chronic kidney disease; D64.9 Anemia, unspecified; I12.9 Hypertensive chronic kidney disease with stage 1 through stage 4 chronic kidney disease, or unspecified chronic kidney disease; N28.1 Cyst of kidney, acquired; N18.3 Chronic kidney disease, stage 3 (moderate); K80.20 Calculus of gallbladder without cholecystitis without obstruction; E78.5 Hyperlipidemia, unspecified; E87.6 Hypokalemia; D72.829 Elevated white blood cell count, unspecified; E89.0 Postprocedural hypothyroidism; G89.29 Other chronic pain; K43.9 Ventral hernia without obstruction or gangrene; Z85.41 Personal history of malignant neoplasm of cervix uteri; Z90.710 Acquired absence of both cervix and uterus; Z79.899 Other long term (current) drug therapy; Z85.42 Personal history of malignant neoplasm of other parts of uterus; Z85.850 Personal history of malignant neoplasm of thyroid
CPT/HCPCS: 36415; 71010; 71020; 76700; 76770; 80048; 80053; 81001; 82948; 83690; 83735; 84100; 84300; 85025; 85610; 87081; 93005; 96361; 96374; 96375; 99285; J0690; J1170; J1885; J2270; J2370; J2405; J2704; J3010; J3475; J3490; J7030; J7042; J7120; Q0092; Q0162

== ENCOUNTER 2019-07-17 21:24 | Inpatient (IN) | payer MEDICAID ==
[~2019-07-17] VITALS: Ht 154.9 cm; Wt 121.1 kg
[~2019-07-17 21:24] MED LIST changes: -AMLO-27 PO; +AMLO-272 PO; +APR10 PO; +HYDR-4924 PO; -[UNRECOGNIZED DRUG - CODE] PO
[2019-07-17 21:28] VITALS: BP 184/75
--- NOTE | 2019-07-17 21:32 | NUR ---
PT BIBA BLS. TAKEN TO BED 9
--- NOTE | 2019-07-17 21:51 | NUR ---
69 Y/F PRESENTS TO ED FOR RLQ ABD PAIN X 1 DAY, THAT RADIATES TO R FLANK. PT C/O N/V/D AFTER BREAKFAST TODAY. PT STATES SHE HAD EGGS, POTATOES, COFFEE, AND CAKE. PT REPORTS 10/10 CONSTANT PAIN. ABDOMEN IS SOFT AND ROUND. ACTIVE BS. LUNGS CLEAR. SIS2 PRESENT. A&O X 4, RR EVEN AND UNLABORED HX- HTN, HYPERCHOLESTEROLEMIA, HERNIA REPAIR X 3 YEAR. NKDA
--- NOTE | 2019-07-17 21:51 | NUR ---
DR. CEBALLOS AT BEDSIDE.
--- NOTE | 2019-07-17 21:51 | NUR ---
Dr. Sanchez examining patient.
[2019-07-17] MEDS ORDERED: NACL 0.9% 1,000 ML IV ONE (21:55)
[2019-07-17] MEDS ORDERED: ONDANSETRON 4 MG/2 ML VIAL IVP ONE (21:55)
--- NOTE | 2019-07-17 21:57 | NUR ---
LAB AT BEDSIDE.
[2019-07-17 22:14] LABS: BASOPHILS % (AUTO) 0.2 % (0.0-2.0); EOSINOPHILS # (AUTO) 0.3 K/uL (0-0.4); EOSINOPHILS % (AUTO) 2.8 % (0.0-4.0); LYMPHOCYTES # (AUTO) 1.5 K/uL (2.5-16.5); MEAN CORPUSCULAR HEMOGLOBIN 26 pg (27-31); MEAN CORPUSCULAR HGB CONC 32 g/dL (33-37); MEAN CORPUSCULAR VOLUME 81.4 fL (80-94); MONOCYTES # (AUTO) 0.6 K/uL (0.8-1.0); MONOCYTES % (AUTO) 4.9 % (1.7-9.3); NEUTROPHILS # (AUTO) 9.2 K/uL (1.8-7.7); NEUTROPHILS % (AUTO) 79.1 % (42.2-75.2); PLATELET COUNT (AUTO) 262 K/uL (140-450); RED BLOOD CELL COUNT(AUTO) 5.04 MIL/uL (4.20-5.40); RED CELL DISTRIBUTION WIDTH 16.3 % (11.6-13.7); WHITE BLOOD COUNT (AUTO) 11.6 K/uL (4.8-10.8)
[2019-07-17] MEDS ORDERED: KETOROLAC 15 MG/ML VIAL IVP ONE (22:25)
[2019-07-17 22:27] LABS: ALBUMIN 3.6 g/dL (3.4-5.0); ANION GAP 14.3 (8-16); CARBON DIOXIDE 27.2 mmol/L (21-32); CREATININE 1.4 mg/dL (0.6-1.3); POTASSIUM 3.5 mmol/L (3.5-5.1); TOTAL BILIRUBIN 0.5 mg/dL (0.0-1.0)
--- NOTE | 2019-07-17 22:28 | NUR ---
PT AMBULATED TO BATHROOM FOR URINE SAMPLE
[2019-07-17 23:09] LABS: APPEARANCE,URINE CLEAR (CLEAR); BILIRUBIN,URINE NEGATIVE (NEGATIVE); BLOOD, URINE NEGATIVE (NEGATIVE); COLOR,URINE YELLOW (YELLOW); LEUKOCYTE ESTERASE ,URINE NEGATIVE (NEGATIVE); NITRITE, URINE NEGATIVE (NEGATIVE); UGLUCOSE NEGATIVE (NEGATIVE)
--- NOTE | 2019-07-17 23:17 | NUR ---
NADR, PT REPORTS 5/10 PAIN, NO DISTRESS NOTED, RR EVEN AND UNLABORED. SISTER AT BEDSIDE.
--- NOTE | 2019-07-17 23:23 | NUR ---
Manny waller in [facility] - 07/17/19 at 2344 by BASILIA PT TAKEN TO CT
--- NOTE | 2019-07-17 23:29 | NUR ---
PT TAKEN TO CT VIA WHEELCHAIR.
--- NOTE | 2019-07-17 23:43 | NUR ---
PT RETURN FROM CT
--- NOTE | 2019-07-18 00:38 | NUR ---
PT AMBULATED TO THE BATHROOM, STEADY GAIT.
[2019-07-18] MEDS ORDERED: ASPI-1822 PO (01:17)
[2019-07-18] MEDS ORDERED: [UNRECOGNIZED DRUG - CODE] PO (01:20)
--- NOTE | 2019-07-18 01:21 | NUR ---
Pt report given to ОЛЬГА Oliveira. Transfer of care at this time.
[2019-07-18] MEDS ORDERED: CHLO25TA33 PO (01:23)
--- NOTE | 2019-07-18 01:30 | NUR ---
ASSUMED CARE OF PT AT THIS TIME. PT VSS. PT AMBUALTORY TO RESTROOM. PT WILL BE ADMITTED FOR SBO. WAITING FOR CALL BACK FROM ADMIT
--- NOTE | 2019-07-18 03:15 | NUR ---
PT NG TUBE INSERTED BY ОЛЬГА GALO, ASSISTED BY ОЛЬГА REID. PT TOLERATED PROCEDURE WELL. NO CHANGES FROM PREVIOUS ASSESSMENT.
--- NOTE | 2019-07-18 03:17 | NUR ---
X-Ray at bedside.
[2019-07-18] MEDS ORDERED: METOCLOPRAMIDE 10 MG/2 ML INJ VIAL IVP ONE (03:25)
[2019-07-18] MEDS ORDERED: ACETAMINOPHEN 325 MG TAB PO PRN (03:50)
[2019-07-18] MEDS ORDERED: DOCUSATE SODIUM 100 MG GELCAP PO PRN (03:50)
[2019-07-18] MEDS ORDERED: HYDROcodone/APAP 5/325 MG 1 TAB TAB PO PRN (03:50)
[2019-07-18] MEDS ORDERED: ZOLPIDEM 5 MG TAB PO PRN (03:50)
[2019-07-18] MEDS ORDERED: LORazepam 2 MG/ML VIAL IM/IVP PRN (03:50)
[2019-07-18] MEDS ORDERED: DEXT 5% /NACL 0.9% 1,000 ML IV ONE (03:55)
[2019-07-18 04:19] LABS: BARBITURATE, URINE NEG. ng/ml (NEG <=200); BENZODIAZEPINE, URINE NEG. ng/mL (NEG <=200); CANNABINOID, URINE NEG. ng/mL (NEG <=50); COCAINE, URINE NEG. ng/mL (NEG <=300); OPIATE, URINE NEG. ng/mL (NEG <=2000); PHENCYCLIDINE SCREEN,URINE NEG. ng/mL (NEG <=25)
[2019-07-18 04:24] LABS: CHOL/HDL RATIO 2.7 (1-4.5); FREE T4 (FREE THYROXINE) 1.59 ng/dL (0.76-1.46); MAGNESIUM 1.5 mg/dL (1.8-2.4); PHOSPHORUS 3.9 mg/dL (2.5-4.9); PROTHROMBIN TIME 10.4 secs (10.8-13.4); THYROID STIMULATING HORMONE 0.11 uIU/mL (0.34-3.74)
--- NOTE | 2019-07-18 04:25 | NUR ---
Pt report given to ОЛЬГА ROMO. Transfer of care at this time.
[2019-07-18 04:30] VITALS: BP 140/80
[2019-07-18] MEDS ORDERED: hydrALAZINE 20 MG/ML VIAL IVP PRN (04:30)
--- NOTE | 2019-07-18 04:30 | NUR ---
RECIVED PT AAOX4 , NID , AMBULATORY , IV SITE INTACT AND PATENT , W/ NGT - SOFT ABD. ADM. ASSESSMENT DONE , MRSA SENT TO LAB POC DISCUSSED AND VERBALIZE UNDERSTANDING , CALL LIGHT WITHIN REACH , ON SAFETY PRECAUTION PROTOCOL . WILL CONT. TO MONITOR. Addendum: 07/18/19 at 0817 by Frances Morton RN UPON ARRIVAL TO ROOM - NGT CONNECT TO LOW INTERMITENT SUCTION -C/O THAO CHAVIRA.
[2019-07-18] MEDS: DEXT 5% /NACL 0.9% 1,000 ML IV SCH ×4 (04:50→22:24)
--- NOTE | 2019-07-18 06:00 | NUR ---
MADE ROUNDS . NO ACUTE DISTRESS NOTED AT THIS TIME - WILL CONT. TO MONITOR.
[2019-07-18] MEDS: LEVOTHYROXINE 0.075 MG TAB PO SCH (06:30)
--- NOTE | 2019-07-18 07:20 | NUR ---
RECEIVED BEDSIDE REPORT FROM NIGHT NURSE. PATIENT AWAKE, ALERT AND ORIENTED X4. NGT INTACT AND PATENT TO LEFT NARES WITH SUCTION ON LOW INTERMITTENT. IV INTACT AND PATENT WITH NS @ 150ML/HR. BED IN LOW POSITION. CALL LIGHT WITHIN REACH. PLANS OF CARE DISCUSSED.
--- NOTE | 2019-07-18 07:30 | NUR ---
ENDORSED TO AM SHIFT . PT - STABLE.
[2019-07-18 08:00] VITALS: BP 140/71
[2019-07-18] MEDS: LABETALOL 100 MG TAB PO SCH (08:25)
[2019-07-18] MEDS: BENAZEPRIL 20 MG TAB PO SCH (08:26)
[2019-07-18] MEDS: FLUoxetine 20 MG CAP PO SCH (08:26)
[2019-07-18] MEDS: ATORVASTATIN 20 MG TAB PO SCH (08:27)
[2019-07-18] MEDS: amLODIPine 5 MG TAB PO SCH (08:27)
[2019-07-18] MEDS ORDERED: CRUSHER, PILL MC ONE (08:30)
[2019-07-18] MEDS: CHLORTHALIDONE 25MG TAB PO SCH (08:32)
[2019-07-18] MEDS ORDERED: CHLORTHALIDONE 50 MG TAB PO SCH (09:00)
[2019-07-18] MEDS ORDERED: NON-FORMULARY ITEM (Amlodipine Besylate (Amlodipine) 10 MG) PO SCH (09:00)
[2019-07-18] MEDS ORDERED: NON-FORMULARY ITEM (Benazepril Hydrochloride (Benazepril) 40 MG) PO SCH (09:00)
[2019-07-18] MEDS ORDERED: NON-FORMULARY ITEM (Chlorthalidone 25 MG) PO SCH (09:00)
--- NOTE | 2019-07-18 09:06 | NUR ---
PATIENT HAS BEEN SCREENED AND CATEGORIZED MODERATE NUTRITION RISK. PATIENT WILL BE SEEN WITHIN 3-5 DAYS OF ADMISSION. 2.8.[address]
--- NOTE | 2019-07-18 09:20 | NUR ---
PATIENT IS ALERT, AWAKE, ORIENTED X4. NGT INTACT AND PATENT, ON LOW INTERMITTENT SUCTION. NGT OUTPUT LIQUID DARK BROWN COLOR, 100ML. NO S/S OF DISTRESS NOTED. PATIENT AMBULATED TO THE RESTROOM WITH STANDBY ASSIST. SAFETY MEASURES IN PLACE. CALL LIGHT WITHIN REACH.
--- NOTE | 2019-07-18 10:10 | NUR ---
DR. GRADY AT BEDSIDE.
--- NOTE | 2019-07-18 10:49 | NUR ---
DC PL[age] YRS OLD FEMALE PATIENT WAS ADMITTED FROM HOME WITH A DX OF SMALL BOWEL OBSTRUCTION . PT HAS A HX OF THYROID AND CERVICAL CA HTN AND SURGICAL HX OF HERNIA REPAIR. CT ABD/PELVIS SHOWED SBO. SURGEON WAS CONSULTED FOR SBO. NG TUBE ESTABLISHED WITH INTERMITTENT SUCTION. ORDERED SMALL BOWEL FOLLOW THRU. STARTED IVF AND REGALAN IV FOR N/V. DC PLAN TO GO HOME WHEN STABLE CM TO FOLLOW. Addendum: 07/20/19 at 1547 by Cassie Draper CM DC PLANNING: THE SMALL BOWEL FOLLOW TROUGH REVEALS PARTIAL BOWEL OBSTRUCTION WAS CLEARED BY SURGEON , VITALS STABLE LABS VALUE WAS AT BASELINE MEDICALLY CLEAR PT IS STABLE FOR DISCHARGE AND FOLLOW UP WITH PCP WITH IN 3-5 DAYS PT VERBALIZED UNDERSTANDING.
--- NOTE | 2019-07-18 11:15 | NUR ---
PATIENT IS ASLEEP, EASILY AROUSABLE BY NAME. NGT INTACT AND PATENT, ON INTERMITTENT SUCTION. NGT OUTPUT NOTED @ 100ML. NO S/S OF DISTRESS NOTED. SAFETY MEASURES IN PLACE. CALL LIGHT WITHIN REACH.
--- NOTE | 2019-07-18 11:47 | NUR ---
DYLON assessment/discharge plan High Risk DC Screen Yes Name: Juana Yang Home Relationship: sister Pre-Admission Living Arrangements: Lives with Other Other: niece: Kary Yang Prior ADL Independent Current Home Health Name/Tel: N/A Current DME/02 Name/Tel: no home O2 Current Hospice Name/Tel: N/A Current Dialysis Name/Tel: N/A Healthcare Decision Maker: Patient Advance Directive No Information Taught: Advance Directive Community Resources Person Taught: Patient Teaching Tools: Community Resources Computer Generated Print Verbal Factors Affecting Learning: None Participation Level: Active Evaluation: Gestures Understanding Verbalizes Understanding Educator: DYLON Frances Discipline: Case Mgt/Social Svcs Tentative Discharge Plan Summary: Patient is a 69 year old female admitted for small bowel obstruction. I met with patient at bedside. Patient alert and oriented x4. Patient speaks Tajik. Patient lives at home with her niece Kary Yang and plans to return home upon discharge. Patient goes to [facility] for medical care. She reported she has seen various MDs at [facility]. She lives in [place] and prefers to go to [facility] for medical care because she has been going there for many years. She fills her prescriptions at [facility] and is considering switching to a pharmacy closer to [place], [place]. She takes the bus and uses Uber for transportation. She denied alcohol/substance abuse. She has had depression for about 15 years. She has never received counseling/mental health services. She denied SI and HI. She is not taking medication for depression. I provided her with education on [facility] www.[employer].org for community resources including counseling/mental health services. Inside Sales Account Representative and/or Solutions Engineer will follow up as needed. Signature: DYLON Frances Date: Jul 18, 2019
[2019-07-18 12:00] VITALS: BP 127/60
--- NOTE | 2019-07-18 12:25 | NUR ---
XR SMALL BOWEL THROUGH CONTRAST GIVEN VIA NGT.
--- NOTE | 2019-07-18 13:00 | NUR ---
PATIENT IS ASLEEP, EASILY AROUSABLE BY NAME. NGT INTACT AND PATENT. PATIENT RECEIVED CONTRAST VIA NGT, PER RADIOLOGIST SUCTION MUST STAY DISCONNECTED. NO S/S OF DISTRESS NOTED. SAFETY MEASURES IN PLACE. CALL LIGHT WITHIN REACH.
--- NOTE | 2019-07-18 15:00 | NUR ---
PATIENT IS AWAKE, VERBALLY RESPONSIVE, TALKING ON THE PHONE. NGT INTACT AND PATENT. NO S/S OF DISTRESS NOTED. SAFETY MEASURES IN PLACE. CALL LIGHT WITHIN REACH. BED IN LOW POSITION.
[2019-07-18 16:00] VITALS: BP 127/60
--- NOTE | 2019-07-18 16:15 | NUR ---
PATIENT IS AWAKE, VERBALLY RESPONSIVE. NGT INTACT AND PATENT. NO S/S OF DISTRESS NOTED. SAFETY MEASURES IN PLACE. CALL LIGHT WITHIN REACH. BED IN LOW POSITION. SPOKE WITH RADIOLOGIST DEPT. ELADIO REGARDING PATIENT BEING OFF SUCTION, STATED PATIENT NEED TO BE OFF SUCTION UNTIL 630PM DUE TO RADIOLOGIST MAY NEED FURTHER IMAGES.
--- NOTE | 2019-07-18 17:31 | NUR ---
ОЛЬГА Ragsdale reminded to follow up with patient if she wants flu shot and document it.
--- NOTE | 2019-07-18 17:40 | NUR ---
PATIENT REQUESTED TO HAVE PNEUMONIA VACCINE UPON DISCHARGE. PER PATIENT FLU VACCINE RECEIVED IN 2018.
[2019-07-18] MEDS: MORPHINE SULFATE 2 MG/ML SYR IVP PRN ×2 (18:11→22:29)
--- NOTE | 2019-07-18 18:17 | NUR ---
PATIENT MEDICATED FOR C/O ABDOMINAL PAIN. MORPHINE GIVEN IVP ORDERED PRN FOR SEVERE PAIN. PATIENT IN BED, AAOX4. WILL CONTINUE TO MONITOR. CALL LIGHT WITHIN REACH.
--- NOTE | 2019-07-18 19:01 | NUR ---
PATIENT IN STABLE CONDITION. WILL ENDORSE TO NIGHT NURSE FOR CONTINUITY OF CARE.
[2019-07-18 20:00] VITALS: BP 139/58
[2019-07-18 20:30] VITALS: BP 117/80
--- NOTE | 2019-07-18 20:30 | NUR ---
RECEIVED PATIENT AWAKE IN BED. PT AOX4. PT ON ROOM AIR, NO SOB. PT REPORTS NAUSEA AND ABD PAIN. WILL MEDICATED. NGT IN PLACE, CLAMPED. BED LOWERED WITH CALL LIGHT WITHIN REACH. SISTER AT BEDSIDE
[2019-07-18] MEDS: ONDANSETRON 4 MG/2 ML VIAL IM/IVP PRN (21:04)
[2019-07-19 00:12] VITALS: BP 185/64
[2019-07-19] MEDS: METOCLOPRAMIDE 10 MG/2 ML INJ VIAL IVP PRN (00:18)
--- NOTE | 2019-07-19 01:30 | NUR ---
Patient's BP 183/83 HR 82 after prn hydralizine administered. Made aware
[2019-07-19] MEDS ORDERED: ENALAPRILAT 2.5 MG/2 ML VIAL IVP SCH (02:00)
[2019-07-19] MEDS ORDERED: MAG SULF 2000 MG/WATER PREMIX 100 ML IV ONE (02:00)
[2019-07-19 02:47] VITALS: BP 148/61
--- NOTE | 2019-07-19 04:13 | NUR ---
SECOND BAG OF MAG SULFATE ADMINISTERED
[2019-07-19] MEDS: DEXT 5% /NACL 0.9% 1,000 ML IV SCH ×3 (06:32→21:00)
[2019-07-19] MEDS: LEVOTHYROXINE 0.075 MG TAB PO SCH (06:34)
--- NOTE | 2019-07-19 07:22 | NUR ---
PATIENT REPORT GIVEN TO DAYSHIFT NURSE. PATIENT ENDORSED IN STABLE CONDITION
--- NOTE | 2019-07-19 07:23 | NUR ---
RECEIVED PATIENT FROM FOOD PRODUCTION MACHINE OPERATOR NURSE FOR CONTINUITY OF CARE. PATIENT IS AAOX4, MALAY SPEAKING. RESPIRATIONS EVEN AND UNLABORED, ROOM AIR. VISIBLE CHEST RISE NOTED. ON TELE MONITORING. ABDOMEN ROUND, NONTENDER. NO C/O NAUSEA OR VOMITING. NGT IN PLACE. SKIN WARM, DRY, AND INTACT. IV IN THE LEFT AC G20 RUNNING D51/2 NS AT 150 ML/HR. IV PATENT. PATIENT IS AMBULATORY. BED IN LOW POSITION. CALL LIGHT IS WITHIN REACH. Addendum: 07/19/19 at 1132 by Princess Katie Chaparro RN FLUID RUNNING IS D5NS AT 150 ML/HR
[2019-07-19 08:00] VITALS: BP 167/75
[2019-07-19 09:07] LABS: BASOPHILS % (AUTO) 0.2 % (0.0-2.0); EOSINOPHILS % (AUTO) 0.4 % (0.0-4.0); HEMATOCRIT 38.4 % (36-48); HEMOGLOBIN 12.6 g/dL (12.0-16.0); LYMPHOCYTES # (AUTO) 1.3 K/uL (2.5-16.5); LYMPHOCYTES % (AUTO) 19.4 % (20.5-51.1); MEAN CORPUSCULAR HEMOGLOBIN 27 pg (27-31); MEAN CORPUSCULAR HGB CONC 33 g/dL (33-37); MONOCYTES # (AUTO) 0.5 K/uL (0.8-1.0); MONOCYTES % (AUTO) 7.6 % (1.7-9.3); NEUTROPHILS # (AUTO) 4.7 K/uL (1.8-7.7); NEUTROPHILS % (AUTO) 72.4 % (42.2-75.2); PLATELET COUNT (AUTO) 258 K/uL (140-450); RED BLOOD CELL COUNT(AUTO) 4.68 MIL/uL (4.20-5.40); WHITE BLOOD COUNT (AUTO) 6.5 K/uL (4.8-10.8)
[2019-07-19] MEDS: ATORVASTATIN 20 MG TAB PO SCH (09:07)
--- NOTE | 2019-07-19 09:07 | NUR ---
GIVEN MORNING MEDICATIONS CRUSHED THROUGH NGT. EXPLAINED TO PATIENT MEDICATIONS. PATIENT VERBALIZED UNDERSTANDING. BED IN LOW POSITION. CALL LIGHT IS WITHIN REACH. WILL CONTINUE TO MONITOR
[2019-07-19] MEDS: BENAZEPRIL 20 MG TAB PO SCH ×2 (09:08→20:57)
[2019-07-19] MEDS: FLUoxetine 20 MG CAP PO SCH (09:08)
[2019-07-19] MEDS: LABETALOL 100 MG TAB PO SCH ×2 (09:08→20:57)
[2019-07-19] MEDS: MAGNESIUM OXIDE 400 MG TAB PO SCH (09:09)
[2019-07-19] MEDS: amLODIPine 5 MG TAB PO SCH (09:09)
[2019-07-19] MEDS: CHLORTHALIDONE 25MG TAB PO SCH (09:10)
--- NOTE | 2019-07-19 10:26 | NUR ---
PATIENT IS SLEEPING AT THIS TIME. NO SIGNS OF DISTRESS NOTED. BED IN LOW POSITION. CALL LIGHT IS WITHIN REACH. WILL CONTINUE TO MONITOR
--- NOTE | 2019-07-19 10:56 | NUR ---
PATIENT DENIES N/V AND ABDOMINAL PAIN AT THIS TIME. NO SIGNS OF DISTRESS NOTED. BED IN LOW POSITION. CALL LIGHT IS WITHIN REACH. NGT IN PLACE.
[2019-07-19 11:09] LABS: MAGNESIUM 2.2 mg/dL (1.8-2.4); PHOSPHORUS 3.3 mg/dL (2.5-4.9)
[2019-07-19 11:10] LABS: ANION GAP 13.1 (8-16); CREATININE 1.3 mg/dL (0.6-1.3); POTASSIUM 3.1 mmol/L (3.5-5.1)
--- NOTE | 2019-07-19 11:35 | NUR ---
NOTIFIED DR. RENE REGARDING PATIENT'S K LEVEL 3.1. WAITING FOR ORDER
--- NOTE | 2019-07-19 11:44 | NUR ---
PATIENT IS AMBULATING AROUND THE UNIT AT THIS TIME. PATIENT DENIES ANY DIZZINESS OR N/V.
[2019-07-19 12:00] VITALS: BP 160/51
[2019-07-19] MEDS ORDERED: POTASSIUM CHLORIDE 40 MEQ, LIDOCAINE MPF 1% 25 MG in NACL 0.9% 250 ML IV SCH (12:00)
--- NOTE | 2019-07-19 12:05 | NUR ---
VITAL SIGNS TAKEN. PATIENT DENIES PAIN. WILL CONTINUE TO MONITOR
--- NOTE | 2019-07-19 12:46 | NUR ---
HANG KCL WITH LIDOCAINE VIA IVF FOR K LEVEL 3.1 PER MD ORDER. EXPLAINED TO PATIENT MEDICATION PURPOSE AND SIDE EFFECTS. PATIENT VERBALIZED UNDERSTANDING. ALSO EXPLAINED THAT IT MAY HURT A LITTLE AT THE IV SITE. PATIENT VERBALIZED UNDERSTANDING. WILL CONTINUE TO MONITOR
[2019-07-19] MEDS ORDERED: LABETALOL 100 MG TAB PO SCH (14:00)
--- NOTE | 2019-07-19 14:14 | NUR ---
GIVEN LABETALOL AND ORETIC ORDERED. GIVEN THROUGH NGT. BP IS 154/62, HR 85. EXPLAINED TO PATIENT MEDS. PATIENT VERBALIZED UNDERSTANDING. CALL LIGHT IS WITHIN REACH. BED IN LOW POSITION. WILL CONTINUE TO MONITOR.
[2019-07-19] MEDS ORDERED: HYDROCHLOROTHIAZIDE 25 MG TAB PO SCH (14:15)
--- NOTE | 2019-07-19 14:26 | NUR ---
PATIENT REQUESTED ICE CHIPS. GIVEN PATIENT ICE CHIPS.
--- NOTE | 2019-07-19 15:00 | NUR ---
FAMILY AT BEDSIDE.
--- NOTE | 2019-07-19 15:27 | NUR ---
C/O OF HEADACHE 8/10 LEVEL. PATIENT DESCRIBED PAIN ACHING. WILL MEDICATE.
[2019-07-19] MEDS: MORPHINE SULFATE 2 MG/ML SYR IVP PRN (15:30)
--- NOTE | 2019-07-19 15:30 | NUR ---
GIVEN MORPHINE VIA IVP FOR PAIN 01/21 HEADACHE. EXPLAINED TO PATIENT MEDICATION AND SIDE EFFECT. PATIENT VERBALIZED UNDERSTANDING. FAMILY AT BEDSIDE. BED IN LOW POSITION. CALL LIGHT IS WITHIN REACH. WILL CONTINUE TO MONITOR
[2019-07-19 16:00] VITALS: BP 136/45
--- NOTE | 2019-07-19 16:03 | NUR ---
VITAL SIGNS TAKEN. PATIENT DENIES ANY PAIN. NO N/V. NO ABDOMINAL PAIN. BED IN LOW POSITION. CALL LIGHT IS WITHIN REACH. WILL CONTINUE TO MONITOR
--- NOTE | 2019-07-19 16:30 | NUR ---
REASSESSED PAIN. PATIENT DENIES PAIN. BED IN LOW POSITION. CALL LIGHT IS WITHIN REACH. WILL CONTINUE TO MONITOR
--- NOTE | 2019-07-19 18:29 | NUR ---
PATIENT IS SLEEPING BUT OPEN EYES WHEN NAME IS CALLED. PATIENT DENIES PAIN. NO N/V. BED IN LOW POSITION. CALL LIGHT IS WITHIN REACH. NGT IN PLACE
--- NOTE | 2019-07-19 19:15 | NUR ---
ENDORSED PATIENT TO THE PROFESSIONAL NURSE NURSE FOR CONTINUITY OF CARE. PATIENT IS IN STABLE CONDITION.
--- NOTE | 2019-07-19 19:20 | NUR ---
RECEIVED BEDSIDE REPORT FROM AM SHIFT RN FOR PT'S CONTINUITY OF CARE. PT IS AAOX4, SAMI SPEAKING, IS ON ROOM AIR, HAS LEFT AC 20G WITH D5NS AT 150ML/HR, DENIES ANY PAIN OR NAUSEA AT THIS TIME. DR. GEE AT BEDSIDE, ORDERED FOR NGT TO DISCONTINUE AND ADVANCE PT TO CLEAR LIQUID DIET. EXPLAINED TO PT THE ASSISTANT FINANCE DIRECTOR ROUTINE, AND ORIENTED TO HOSPITAL ENVIRONMENT, PT VERBALIZED UNDERSTANDING. WILL CARRY OUT ORDERS FROM DR. GEE, AND WILL MONITOR PT THROUGHOUT SHIFT.
[2019-07-19 20:00] VITALS: BP 152/50
--- NOTE | 2019-07-19 21:00 | NUR ---
ADMINISTERED SCHEDULED MEDICATIONS ORDERED. PT TOLERATED THEM WELL. DISCONTINUED NGT AND ADVANCED TO CLEAR LIQUID DIET PER MD ORDER. PT'S NEEDS MET AT THIS TIME. WILL CONTINUE TO MONITOR PT.
--- NOTE | 2019-07-19 23:30 | NUR ---
ASSISTED PT TO THE RESTROOM. REPORTED HAD MODERATE AMOUNT OF STOOL. PT C/O NAUSEA AFTER AMBULATING TO THE RESTROOM. WILL MEDICATE PT WITH ANTI-NAUSEA MEDICATION ORDERED.
[2019-07-20] VITALS: BP 126/59
[2019-07-20] MEDS: ONDANSETRON 4 MG/2 ML VIAL IM/IVP PRN ×2 (00:30→09:09)
--- NOTE | 2019-07-20 00:30 | NUR ---
PT C/O NAUSEA AFTER GOING TO THE RESTROOM. ADMINISTERED PRN IVP MEDICATION FOR NAUSEA, PT TOLERATED IT WELL. PT REQUESTED TO SIT ON THE BEDSIDE CHAIR FOR A WHILE. PT TEACHING GIVEN RE: MEDICATION AND FALL PREVENTION. PT VERBALIZED UNDERSTANDING. WILL CONTINUE TO MONITOR PT.
--- NOTE | 2019-07-20 02:30 | NUR ---
PT ASLEEP WITH NO SIGNS OF DISTRESS. WILL CONTINUE TO MONITOR PT.
[2019-07-20] MEDS: DEXT 5% /NACL 0.9% 1,000 ML IV SCH (03:50)
[2019-07-20 04:09] VITALS: BP 110/59
[2019-07-20] MEDS: METOCLOPRAMIDE 10 MG/2 ML INJ VIAL IVP PRN (05:05)
--- NOTE | 2019-07-20 05:05 | NUR ---
PT C/O NAUSEA. ADMINISTERED PRN IVP ANTI NAUSEA MEDICATION ORDERED. ELEVATED PT'S HOB, PT TEACHING GIVEN, PT VERBALIZED UNDERSTANDING. PT MADE COMFORTABLE. WILL CONTINUE TO MONITOR PT.
[2019-07-20] MEDS: LEVOTHYROXINE 0.075 MG TAB PO SCH (06:10)
--- NOTE | 2019-07-20 06:10 | NUR ---
ADMINISTERED SCHEDULED PO MEDICATION ORDERED. PT TOLERATED IT WELL. PT DENIES ANY PAIN OR NAUSEA AT THIS TIME. WILL ENDORSE TO AM SHIFT RN FOR PT'S CONTINUITY OF CARE.
[2019-07-20] MEDS ORDERED: KCL 20 MEQ/WATER INJ PREMIX 200 ML IV PRN (06:20)
[2019-07-20 06:54] LABS: BASOPHILS % (AUTO) 0.2 % (0.0-2.0); EOSINOPHILS % (AUTO) 0.7 % (0.0-4.0); HEMATOCRIT 37.5 % (36-48); HEMOGLOBIN 11.9 g/dL (12.0-16.0); LYMPHOCYTES # (AUTO) 1.1 K/uL (2.5-16.5); LYMPHOCYTES % (AUTO) 19.7 % (20.5-51.1); MEAN CORPUSCULAR HEMOGLOBIN 26 pg (27-31); MEAN CORPUSCULAR HGB CONC 32 g/dL (33-37); MEAN CORPUSCULAR VOLUME 82.2 fL (80-94); MONOCYTES # (AUTO) 0.4 K/uL (0.8-1.0); MONOCYTES % (AUTO) 7.5 % (1.7-9.3); NEUTROPHILS # (AUTO) 4.2 K/uL (1.8-7.7); NEUTROPHILS % (AUTO) 71.9 % (42.2-75.2); PLATELET COUNT (AUTO) 260 K/uL (140-450); RED BLOOD CELL COUNT(AUTO) 4.56 MIL/uL (4.20-5.40); RED CELL DISTRIBUTION WIDTH 15.8 % (11.6-13.7); WHITE BLOOD COUNT (AUTO) 5.8 K/uL (4.8-10.8)
--- NOTE | 2019-07-20 07:16 | NUR ---
RECEIVED PATIENT FROM COLOR MAKER FORMULATOR NURSE FOR CONTINUITY OF CARE. PATIENT IS AAOX4, POLISH SPEAKING. RESPIRATIONS EVEN AND UNLABORED, ROOM AIR. VISIBLE CHEST RISE NOTED. ON TELE MONITORING. ABDOMEN ROUND, NONTENDER. NO C/O NAUSEA OR VOMITING. SKIN WARM, DRY, AND INTACT. IV IN THE LEFT AC G20 RUNNING NS AT 80 ML/HR. IV PATENT. PATIENT IS AMBULATORY. BED IN LOW POSITION. CALL LIGHT IS WITHIN REACH. WILL CONTINUE TO MONITOR
[2019-07-20] MEDS ORDERED: NACL 0.9% 1,000 ML IV SCH (07:30)
--- NOTE | 2019-07-20 07:30 | NUR ---
HANG NS 1000 ML BAG AT A RATE OF 80 ML/HR PER MD ORDER.
[2019-07-20 07:43] LABS: ANION GAP 11.7 (8-16); CARBON DIOXIDE 28.4 mmol/L (21-32); CREATININE 1.3 mg/dL (0.6-1.3); POTASSIUM 3.1 mmol/L (3.5-5.1)
[2019-07-20 08:00] VITALS: BP 169/69
[2019-07-20] MEDS: ATORVASTATIN 20 MG TAB PO SCH (08:54)
[2019-07-20] MEDS: amLODIPine 5 MG TAB PO SCH (08:55)
[2019-07-20] MEDS: BENAZEPRIL 20 MG TAB PO SCH (08:56)
[2019-07-20] MEDS: FLUoxetine 20 MG CAP PO SCH (08:56)
[2019-07-20] MEDS: MAGNESIUM OXIDE 400 MG TAB PO SCH (08:56)
[2019-07-20] MEDS: LABETALOL 100 MG TAB PO SCH (08:57)
--- NOTE | 2019-07-20 08:57 | NUR ---
ADMINISTERED MORNING MEDICATIONS PO. HANG [facility] FOR K LEVEL 3.1. RESIDENT DOCTOR AWARE. EXPLAINED TO PATIENT MEDICATIONS AND SIDE EFFECTS. PATIENT VERBALIZED UNDERSTANDING. BED IN LOW POSITION. CALL LIGHT IS WITHIN REACH. WILL CONTINUE TO MONITOR
[2019-07-20] MEDS ORDERED: HYDROCHLOROTHIAZIDE 25 MG TAB PO SCH (09:00)
[2019-07-20] MEDS: CHLORTHALIDONE 25MG TAB PO SCH (09:08)
--- NOTE | 2019-07-20 09:09 | NUR ---
GIVEN NORCO FOR 5/10 ABDOMINAL PAIN AND ZOFRAN FOR NAUSEA. EXPLAINED TO PATIENT MEDS. PATIENT VERBALIZED UNDERSTANDING. WILL REASSESS
[2019-07-20] MEDS ORDERED: TRA200 PO (09:24)
[2019-07-20] MEDS ORDERED: BENA40TA PO (09:24)
[2019-07-20] MEDS ORDERED: HYDR25TA32 PO (09:24)
[2019-07-20] MEDS ORDERED: DOCU-300 PO (09:25)
[2019-07-20] MEDS ORDERED: MIRABULK PO (09:25)
--- NOTE | 2019-07-20 10:09 | NUR ---
REASSESS PATIENT'S PAIN. PATIENT DENIES PAIN. WILL CONTINUE TO MONITOR
[2019-07-20 10:35] VITALS: BP 145/76
[2019-07-20] MEDS ORDERED: POTASSIUM CHLORIDE 10 MEQ TABER PO SCH (11:00)
--- NOTE | 2019-07-20 11:02 | NUR ---
CALLED BRITTANY, PATIENT'S SISTER, TOLD HER THE PATIENT WILL BE GOING HOME TODAY. BRITTANY TOLD ME THAT SHE WILL CALL PATIENT'S SON DINAH TO SEND UBER PATIENT'S RIDE. BRITTANY WILL CALL ME BACK WHAT TIME THE UBER WILL BE HERE
--- NOTE | 2019-07-20 11:05 | NUR ---
GIVEN KDUR 40 MEQ PO PER MD ORDER. EXPLAINED TO PATIENT MED AND SIDE EFFECTS. PATIENT VERBALIZED UNDERSTANDING. WILL CONTINUE TO MONITOR
[2019-07-20 12:00] VITALS: BP 117/56
--- NOTE | 2019-07-20 12:05 | NUR ---
CALLED BRITTANY. BRITTANY SAID SHE WILL COMMUNICATIONS PROGRAMMER PATIENT AT 1300 WITH UBER.
--- NOTE | 2019-07-20 12:08 | NUR ---
VITAL SIGNS CHECK. PATIENT DENIES ABD PAIN, N/V. BED IN LOW POSITION. CALL LIGHT IS WITHIN REACH. WILL CONTINUE TO MONITOR
--- NOTE | 2019-07-20 12:38 | NUR ---
PATIENT REFUSED FLU AND PNA VACCINES.
--- NOTE | 2019-07-20 12:40 | NUR ---
EXPLAINED DISCHARGED INSTRUCTIONS TO THE PATIENT. USE [employer]ANE #[id number]. EXPLAINED TO PATIENT THAT SHE NEEDS TO SEE HER PCP SHARI, HER PRESCRIPTIONS FROM DR. GARCIA, AND IF HER POTASSIUM LEVEL IS LOW, SHE NEEDS TO TELL HER PCP, STOP TAKING HER BP MEDS IF HER SBP IS <110 AND DBP IS <75, AND EAT LIGHT. PATIENT VERBALIZED TO ALL INSTRUCTIONS. SHE HAS APPT WITH DR. ROMAN AT [facility] AT Jul. PATIENT IS AWARE.
--- NOTE | 2019-07-20 12:41 | NUR ---
PATIENT SIGNED DISCHARGED PAPER. REMINDED PATIENT TO BRING PRESCRIPTION TO THE PHARMACY AND TO FOLLOW UP WITH PCP
--- NOTE | 2019-07-20 12:55 | NUR ---
DISCONTINUED IV. MINIMAL BLEEDING. SECURED WITH 2X2 AND TAPE. REMOVED ID BAND WELL.
--- NOTE | 2019-07-20 13:15 | NUR ---
WHEELED PATIENT TO THE LOBBY. SISTER BRITTANY PICKED UP THE PATIENT. PATIENT IS IN STABLE CONDITION. RESPIRATIONS EVEN AND UNLABORED. NO N/V. NO ABD PAIN. VISIBLE CHEST RISE NOTED.
== END 2019-07-20 13:30 | disposition home or self-care (01) | DRG 247 ==
LOC: MED 21:24 → MTU 07-18 03:50 → OBSVTOIN 07-19 08:39
PROVIDERS: ADMIT General Practice; ATTEND General Practice
PROC: 0D9670Z Drainage of Stomach with Drainage Device, Via Natural or Artificial Opening (ICD-10-PCS; principal; 2019-07-17)
DX: K56.600 Partial intestinal obstruction, unspecified as to cause (principal); N17.0 Acute kidney failure with tubular necrosis; E66.01 Morbid (severe) obesity due to excess calories; E78.00 Pure hypercholesterolemia, unspecified; I10 Essential (primary) hypertension; I16.0 Hypertensive urgency; K57.30 Diverticulosis of large intestine without perforation or abscess without bleeding; N28.1 Cyst of kidney, acquired; E03.9 Hypothyroidism, unspecified; E78.5 Hyperlipidemia, unspecified; D64.9 Anemia, unspecified; E87.6 Hypokalemia; Z68.43 Body mass index [BMI] 50.0-59.9, adult; Z71.3 Dietary counseling and surveillance; Z79.82 Long term (current) use of aspirin; Z79.899 Other long term (current) drug therapy; Z85.850 Personal history of malignant neoplasm of thyroid; Z85.41 Personal history of malignant neoplasm of cervix uteri; Z90.710 Acquired absence of both cervix and uterus; Z83.3 Family history of diabetes mellitus; Z82.49 Family history of ischemic heart disease and other diseases of the circulatory system
CPT/HCPCS: 96361; 96374; 96375; 99285; G0378; 36415; 71045; 74250; 80048; 80053; 80305; 81003; 82150; 83036; 83690; 83735; 83880; 84100; 84439; 84443; 84484; 85025; 85610; 85730; 87081; J0360; J1885; J2001; J2270; J2405; J2765; J3475; J3480; J3490; J7030; J7042; Q0092; Q9967